=== PATIENT | female | born 1940 | race Caucasian/White ===

== ENCOUNTER 2017-09-17 15:33 | Observation (INO) ==
[2017-09-17] MEDS ORDERED: ONDANSETRON 4 MG/2 ML INJECTION IVP ONE (15:50)
--- NOTE | 2017-09-17 15:52 | Emergency Department Report ---
Abdominal Pain HPI - General Chief Complaint: Nausea/Vomiting/Diarrhea <Tameka Winn Yumiko 09/17/17 15:52 > Stated Complaint: Dizzy,lightheaded <Tameka Winn Yumiko 09/17/17 15:52> Time Seen by Provider: 09/17/17 15:38 <Delia Winnkale Calderon 09/17/17 15:52> Source: patient <Tameka Winn Yumiko 09/17/17 15:52> Mode of arrival: EMS <TatumTamekakale Calderon 09/17/17 15:52> Limitations: no limitations <Delia Winnan Marciano Yumiko 09/17/17 15:52> - History of Present Illness HPI narrative: Pt presents with a complaint of abdominal cramping and nausea. She states she had 2 normal BMs followed by a bout of diarrhea when she stood up after having diarrhea she became dizzy and diaphoretic and then called her daughter and was transported by EMS. Pt complains of nausea at this time. She reports a history of hiatal hernia which causes occasionally causes discomfort after she eats but she has not eaten since breakfast <Tameka Winn 09/17/17 16:13> MD complaint: abdominal pain <Tameka Winn 09/17/17 16:13> Onset (ago): hour(s) <Tameka Winn 09/17/17 16:13> Consistency: constant <Tameka Winn 09/17/17 16:13> Location: epigastric <Tameka Winn 09/17/17 16:13> Severity: mild <Tameka Winn 09/17/17 16:13> Migration to: no migration <Tameka Winn 09/17/17 16:13> Relieving factors: nothing <Tameka Winn 09/17/17 16:13> Exacerbating factors: nothing <Tameka Winn 09/17/17 16:13> Associated symptoms: nausea, diarrhea, other (diahoresis) <Tameka Winn 09/17/17 16:13> - Related Data Home Medications Medication Instructions Recorded Confirmed Lisinopril 10 mg PO BID #0 07/01/12 09/17/17 Aspirin [Towner Aspirin] 81 mg PO DAILY 09/17/17 09/17/17 Docusate Sodium [Colace] 100 mg PO DAILY 09/17/17 09/17/17 Meloxicam [Mobic] 7.5 mg PO BID 09/17/17 09/17/17 Metoprolol Tartrate [Lopressor] 50 mg PO BIDWM 09/17/17 09/17/17 Wheat Dextrin [Benefiber] 1 each PO PRN 09/17/17 09/17/17 diphenhydrAMINE HCl [Benadryl] 25 mg PO PRN 09/17/17 09/17/17 Previous Rx's Medication Instructions Recorded Acetaminophen [Tylenol Extra 500 - 1,000 mg PO Q6H PRN #60 tab 09/27/16 Strength] Omeprazole 20 mg PO ACB #30 cap 10/07/16 <Tameka Winn 09/17/17 15:52> Allergies Allergy/AdvReac Type Severity Reaction Status Date / Time No Known Allergies Allergy Unverified 09/24/16 01:11 <Tameka Winn 09/17/17 15:52> Review of Systems All systems: reviewed and negative except as stated <Tameka Winn 16:13> Constitutional: Denies: fever, chills <Tameka Winn 09/17/17 16:13> Cardiovascular: Denies: chest pain <Tameka Winn 09/17/17 16:13> Respiratory: Denies: cough, dyspnea <Tameka Winn 09/17/17 16:13> Gastrointestinal: Reports: as per HPI, abdominal pain, nausea, diarrhea < Tameka Winn 09/17/17 16:13> Neurological: Reports: as per HPI, weakness <Tameka Winn 09/17/17 16: 13> Physical Exam - Limitations Limitations: no limitations <Tameka Winn 09/17/17 16:13> - General General appearance: alert, in no apparent distress <Tameka Winn 09/17 16:13> - Normal Exams: Head:: Normocephalic without trauma <Tameka Winn 09/17/17 16:13> Eyes:: Pupils are PERRLA w/ EOMI <Tameka Winn 09/17/17 16:13> Neck:: Full range of motion, without adenopathy <Tameka Winn 16:13> Chest/Respirations:: Clear all aguayo, with good airflow, and symmetry bilaterally <Tameka Winn 09/17/17 16:13> Cardiovascular:: Regular rate and rhythm, without murmur or gallop, Pulses 2+ all extremities, capillary refill, <2 seconds all extremities <Tameka Winn 09/17/17 16:13> Abdomen:: Bowel sounds positive, soft, non-tender, non-distended <Tameka Winn 09/17/17 16:13> Musculoskeletal:: No tenderness, or deformity noted, good range of motion, all extremities <Tameka Winn 09/17/17 16:13> Integumentary:: No rashes <Tameka Winn 09/17/17 16:13> Neurological:: Patient is alert, and oriented, cranial nerves, motor/sensory/ cerebellar, exams w/o gross deficits, to observation <Tameka Winn 16:13> Psychiatric:: Patient exhibits, appropriate attention, emotion and affect < Tameka Winn 09/17/17 16:13> Course Vital Signs Temperature 97.5 F 09/17/17 15:33 Pulse Rate 79 09/17/17 15:33 Respiratory Rate 22 09/17/17 15:33 Blood Pressure 119/64 09/17/17 15:33 Pulse Oximetry 95 09/17/17 15:33 Temperature 97.5 F 09/17/17 15:33 Pulse Rate 76 09/17/17 16:18 Respiratory Rate 18 09/17/17 16:18 Blood Pressure 126/61 09/17/17 16:18 Pulse Oximetry 93 09/17/17 16:18 <February,Alex M - 09/17/17 16:44> Abdominal Pain - MDM Narrative Medical decision making narrative: Labs and EKG reviewed. In discussion with pt about results daughter is at bedside who reports pt was unable to get up from the toilet so pt had called her for help. Daughter assisted pt up who she states then had "seizure" like activity and then became unresponsive for unknown amount of time. Pt did not provide any of this info when obtaining her H&P. This leads to question pts ability to care for self at home with undiagnosed infection per CBC. Hospitalist notified for admission <TatumTamekakale Calderon 09/17/17 18:12> - Differential Diagnosis Differential diagnosis: Likely: abdominal pain, diverticulitis, gastroenteritis , small bowel obstruction <Tameka Winn 09/17/17 16:13> - Lab Data Attestation: I reviewed the patient's lab results. <TatumTamekakale Calderon 09/17 18:01> Result diagrams: 09/17/17 16:12 09/17/17 16:12 <Tameka Winn 09/17/17 15:52> Lab Results 09/17/17 09/17/17 Range/Units 16:12 16:12 WBC 15.8 H (4.5-11.0) T/MM3 RBC 4.26 (4.00-5.20) M/MM3 Hgb 14.4 (12-16) GM/DL Hct 43.0 (36-46) % MCV 100.9 H (80-100) UM3 MCH 33.8 (26-34) UUG MCHC 33.5 (31-37) GM/DL RDW Std Deviation 52.4 H (36.9-50.2) FL Plt Count 298 (130-400) T/MM3 MPV 9.7 (9.4-12.4) UM3 Immature Gran % (Auto) Not performed Neut % (Auto) Not performed Lymph % (Auto) Not performed Levy % (Auto) Not performed Eos % (Auto) Not performed Baso % (Auto) Not performed Neut # (Auto) Not performed Lymph # (Auto) Not performed Levy # (Auto) Not performed Eos # (Auto) Not performed Baso # (Auto) Not performed Abs Immat Gran (auto) Not performed Turbidity < 20 (0-20) Sodium 141 (134-144) MEQ/L Potassium 4.6 (3.6-5) MEQ/L Chloride 108 H (98-107) MEQ/L Carbon Dioxide 22 (22-30) MEQ/L Anion Gap 11 (5-15) MEQ/L BUN 34.0 H (7-17) MG/DL Creatinine 1.0 (0.7-1.2) MG/DL GFR Calculation 53 BUN/Creatinine Ratio 34 H (6-26) RATIO Glucose 141 H (65-110) MG/DL Calculated Osmolality 281 H (261-280) MOSM/KG Calcium 9.5 (8.4-10.2) MG/DL Total Bilirubin 0.50 (0.20-1.30) MG/DL Icterus Index < 2 (0-7) AST 19 (14-36) U/L ALT 32 (9-52) U/L Alkaline Phosphatase 88 (38-126) U/L Troponin I < 0.012 (0-0.12) ng/ml Total Protein 6.9 (6.3-8.2) G/DL Albumin 3.9 (3.5-5.0) G/DL Globulin 3.0 (2.4-3.6) G/DL Albumin/Globulin Ratio 1.3 (1.1-2.2) RATIO Specimen Hemolysis < 15 (0-25) <eb 09/17/17 16:44> - EKG Data EKG #1 EKG attestation: Yes: I reviewed and interpreted this EKG. < 16:44> EKG shows normal: sinus rhythm, axis, intervals <eb 09/17/17 16:44> Voltage: c/w LVH <eb 09/17/17 16:44> Interpretation: nonspecific ST-T wave changes <February,[facility] 09/17/17 16:44> Disposition Clinical Impression: Dehydration Diarrhea Qualifiers: Diarrhea type: presumed infectious Qualified Code(s): A09 - Infectious gastroenteritis and colitis, unspecified Syncope Qualifiers: Syncope type: vasovagal syncope Qualified Code(s): R55 - Syncope and collapse <Tameka Winn 09/17/17 18:12> Disposition: 02 To [facility] [place] <Tameka Winn 09/17/17 18:12> Condition: Stable <Tameka Winn 09/17/17 18:12> Prescriptions: No Action Omeprazole 20 mg PO ACB #30 cap Aspirin [Towner Aspirin] 81 mg PO DAILY Metoprolol Tartrate [Lopressor] 50 mg PO BIDWM Meloxicam [Mobic] 7.5 mg PO BID diphenhydrAMINE HCl [Benadryl] 25 mg PO PRN Lisinopril 10 mg PO BID #0 Acetaminophen [Tylenol Extra Strength] 500 - 1,000 mg PO Q6H PRN #60 tab PRN Reason: Pain Wheat Dextrin [Benefiber] 1 each PO PRN Docusate Sodium [Colace] 100 mg PO DAILY <Tameka Winn 09/17/17 15: 52> Referrals: Usama Lopez MD [Family Provider] - <Tameka Winn 09/17/17 15:52> Time of Disposition: 18:12 <Tameka Winn 09/17/17 18:12> - Seen By: midlevel <Tameka Winn 09/17/17 18:12>
[2017-09-17] MEDS ORDERED: FAMOTIDINE PB 20 MG/50 ML BAG IV SCH (16:00)
--- OUTSIDE RECORDS SUMMARY | 2017-09-17 16:12 | External Medical Summary | Referral Summary ---
:1940 Author Organization [facility] [address] [place] [address] Care Team Providers Name Role Phone Usama Lopez Primary Care Physician Encounter [facility] [id number] Date(s): 07/06/16 - 07/06/16 [facility] [address] [place] [address] Discharge Diagnosis: Generalized osteoarthritis (disorder) Discharge Diagnosis: Hypercholesterolemia Discharge Diagnosis: GERD (gastroesophageal reflux disease) Discharge Diagnosis: Essential hypertension Discharge Disposition: -Home or Self Care Attending Physician: Usama Lopez MD Admitting Physician: Usama Lopez MD Vital Signs Most recent to oldest [Reference Range]: 1 Temperature Tympanic [36.6-38.1 degC] 36.8 degC (07/06/16 11:34 AM) Peripheral Pulse Rate [60-100 bpm] 76 bpm (07/06/16 11:34 AM) Respiratory Rate [14-20 br/min] 18 br/min (07/06/16 11:34 AM) Blood Pressure [90-140/60-90 mmHg] 130/78 mmHg (07/06/16 11:34 AM) Problem List Condition Effective Dates Status Health Status Informant Generalized osteoarthritis Active (disorder)(Confirmed) Essential hypertension Active (disorder)(Confirmed) GERD(Confirmed) Active Hypercholesterolemia(Confirmed) Active Hypertension(Confirmed) Active Obesity(Confirmed) Active patient Osteoporosis(Confirmed) Active Pure hypercholesterolemia Active (disorder)(Confirmed) Pulmonary hypertension, Active secondary(Confirmed) Allergies, Adverse Reactions, Alerts No Known Medication Allergies Medications aspirin 81 mg oral tablet, chewable See Instructions, ON HOLD X 1 MONTH Start Date: 06/13/14 Status: OrderedBenefiber Oral, Daily, 0 Refill(s) Start Date: 12/12/14 Status: Orderedlisinopril 10 mg oral tablet See Instructions, TAKE ONE TABLET BY MOUTH TWICE DAILY, # 180 tabs, 1 Refill(s) , eRx: [id number], TAKE ONE TABLET BY MOUTH TWICE DAILY Start Date: 04/11/16 Status: Orderedmeloxicam 7.5 mg oral tablet See Instructions, TAKE ONE TO TWO TABLETS BY MOUTH ONCE DAILY, # 180 tabs, 2 Refill(s), Pharmacy: [id number], TAKE ONE TO TWO TABLETS BY MOUTH ONCE DAILY Start Date: 07/06/16 Status: OrderedMultivitamins oral tablet 1 tabs, Oral, Daily Start Date: 06/13/14 Status: Orderedomeprazole 20 mg oral delayed release capsule See Instructions, TAKE ONE CAPSULE BY MOUTH ONCE DAILY BEFORE A MEAL, # 90 caps, 3 Refill(s), Pharmacy: [id number], TAKE ONE CAPSULE BY MOUTH ONCE DAILY BEFORE A MEAL Start Date: 07/06/16 Status: OrderedPeri-Colace 1 tabs, Oral, Bedtime (once a day), Constipation, 0 Refill(s) Start Date: 11/11/14 Status: Ordered Results Chemistry Most recent to oldest [Reference Range]: 1 Sodium Lvl [135-144 mEq/L] 139 mEq/L (07/06/16 12:10 PM) Potassium Lvl [3.5-5.2 mEq/L] 4.4 mEq/L (07/06/16 12:10 PM) Chloride [99-111 mEq/L] 107 mEq/L (07/06/16 12:10 PM) CO2 [22-31 mEq/L] 25 mEq/L (07/06/16 12:10 PM) AGAP [3-20] 7 (07/06/16 12:10 PM) BUN [10-20 mg/dL] 32 mg/dL *HI* (07/06/16 12:10 PM) Glucose Lvl [70-99 mg/dL] 95 mg/dL (07/06/16 12:10 PM) Creatinine Lvl [0.57-1.11 mg/dL] 1.16 mg/dL *HI* (07/06/16 12:10 PM) eGFR [>60 mL/min] 45 mL/min 1 *ABN* (07/06/16 12:10 PM) Calcium Lvl [8.9-10.5 mg/dL] 10.1 mg/dL (07/06/16 12:10 PM) Albumin Lvl [3.4-4.8 gm/dL] 4.4 gm/dL (07/06/16 12:10 PM) Total Protein [6.0-7.6 gm/dL] 6.8 gm/dL (07/06/16 12:10 PM) Globulin [1.8-4.0 gm/dL] 2.4 gm/dL (07/06/16 12:10 PM) ALT [0-55 U/L] 11 U/L (07/06/16 12:10 PM) AST [5-34 U/L] 14 U/L (07/06/16 12:10 PM) Alk Phos [40-150 U/L] 81 U/L (07/06/16 12:10 PM) Bili Total [0.2-1.2 mg/dL] 0.6 mg/dL (07/06/16 12:10 PM) 1Result Comment: Multiply eGFR results by 1.21 for race. Immunizations Vaccine Date Refusal Reason tetanus/diphth/pertuss (Tdap) adult/adol 09/10/14 hepatitis B pediatric vaccine 12/28/88 hepatitis B pediatric vaccine 07/30/88 hepatitis B pediatric vaccine 06/30/88 influenza virus vaccine, inactivated 07/06/16 influenza virus vaccine, inactivated1 07/20/15 influenza virus vaccine, live 07/14/14 influenza virus vaccine, live 07/11/13 influenza virus vaccine, live 08/06/12 pneumococcal 13-valent conjugate vaccine 07/02/15 pneumococcal 23-polyvalent vaccine 10/30/03 1Result Comment: [07/20/2015] VIA PT ORAL REPORT Procedures Procedure Date Related Diagnosis Body Site Colonoscopy1 11/05/14 Esophagogastroduodenoscopy2 11/05/14 Mammogram 06/18/14 Cataract extraction 2006 Hernia repair Hysterectomy 1Marked diverticulosis likely the cause of rectal [id number] stomach Social History Social History Type Response Smoking Status Never smoker Assessment and Plan Extracted from: Title: Office Visit Note Author: Usama Lopez MD Date: 07/06/16 Assessment/Plan 1.Essential hypertension, Essential (primary) hypertension Blood pressure appears to be adequately controlled no change in current treatment is recommended. CMP is ordered for today. Flu shot given today. Follow-up in 6 months. Call with problems or concerns. Ordered: Comprehensive Metabolic Panel Office Visit Level 4 Est 29358 2.GERD (gastroesophageal reflux disease), Gastro-esophageal reflux disease without esophagitis Chronic stable on omeprazole refills provided today. Call if worsening symptoms. Ordered: Office Visit Level 4 Est 05891 3.Generalized osteoarthritis (disorder), Polyosteoarthritis, unspecified Chronic persistent no change in current treatmentmeloxicam refilled today. Ordered: Comprehensive Metabolic Panel Office Visit Level 4 Est 05615 4.Hypercholesterolemia, Pure hypercholesterolemia Chronic and stable recheck next springunless problems develop prior to that. Follow-up in 6 months Ordered: Office Visit Level 4 Est 06019 Orders: meloxicam, See Instructions, TAKE ONE TO TWO TABLETS BY MOUTH ONCE DAILY, # 180 tabs, 2 Refill(s), Pharmacy: [facility], TAKE ONE TO TWO TABLETS BY MOUTH ONCE DAILY omeprazole, See Instructions, TAKE ONE CAPSULE BY MOUTH ONCE DAILY BEFORE A MEAL, # 90 caps, 3 Refill(s), Pharmacy: [facility], TAKE ONE CAPSULE BY MOUTH ONCE DAILY BEFORE A MEAL
--- OUTSIDE RECORDS SUMMARY | 2017-09-17 16:12 | External Medical Summary | Referral Summary ---
:1940 Author Organization [facility] [address] [place] [address] Care Team Providers Name Role Phone Usama Lopez Primary Care Physician Encounter VC Date(s): 08/29/16 - 08/29/16 [facility] [address] [place] [address] [place] Discharge Diagnosis: Hypercholesterolemia Discharge Diagnosis: Orthostatic dizziness Discharge Diagnosis: Left eye pain Discharge Diagnosis: Essential hypertension Discharge Diagnosis: Headache Discharge Disposition: 01-Home or Self Care Attending Physician: Usama Lopez MD Admitting Physician: Usama Lopez MD Vital Signs Most recent to oldest [Reference Range]: 1 Temperature Tympanic [36.6-38.1 degC] 36.9 degC (08/29/16 4:24 PM) Peripheral Pulse Rate [60-100 bpm] 88 bpm (08/29/16 4:24 PM) Respiratory Rate [14-20 br/min] 16 br/min (08/29/16 4:24 PM) Blood Pressure [90-140/60-90 mmHg] 164/87 mmHg *HI* (08/29/16 4:24 PM) Problem List Condition Effective Dates Status Health Status Informant Generalized osteoarthritis Active (disorder)(Confirmed) Essential hypertension Active (disorder)(Confirmed) GERD(Confirmed) Active Hypercholesterolemia(Confirmed) Active Hypertension(Confirmed) Active Obesity(Confirmed) Active patient Osteoporosis(Confirmed) Active Pure hypercholesterolemia Active (disorder)(Confirmed) Pulmonary hypertension, Active secondary(Confirmed) Allergies, Adverse Reactions, Alerts No Known Medication Allergies Medications aspirin 81 mg oral tablet, chewable See Instructions, ON HOLD X 1 MONTH Start Date: 06/13/14 Status: OrderedBenadryl Allergy mg, Oral, TID, 0 Refill(s) Start Date: 07/14/16 Status: OrderedBenefiber Oral, Daily, 0 Refill(s) Start Date: 12/12/14 Status: Orderedlisinopril 10 mg oral tablet See Instructions, TAKE ONE TABLET BY MOUTH TWICE DAILY, # 180 tabs, 1 Refill(s) , eRx: [id number], TAKE ONE TABLET BY MOUTH TWICE DAILY Start Date: 04/11/16 Status: Orderedmeloxicam 7.5 mg oral tablet See Instructions, TAKE ONE TO TWO TABLETS BY MOUTH ONCE DAILY, # 180 tabs, 2 Refill(s), Pharmacy: [facility], TAKE ONE TO TWO TABLETS BY MOUTH ONCE DAILY Start Date: 07/06/16 Status: OrderedMultivitamins oral tablet 1 tabs, Oral, Daily Start Date: 06/13/14 Status: Orderedomeprazole 20 mg oral delayed release capsule See Instructions, TAKE ONE CAPSULE BY MOUTH ONCE DAILY BEFORE A MEAL, # 90 caps, 3 Refill(s), Pharmacy: [facility], TAKE ONE CAPSULE BY MOUTH ONCE DAILY BEFORE A MEAL Start Date: 07/06/16 Status: OrderedPeri-Colace 1 tabs, Oral, Bedtime (once a day), Constipation, 0 Refill(s) Start Date: 11/11/14 Status: Ordered Results No data available for this section Immunizations Vaccine Date Refusal Reason tetanus/diphth/pertuss (Tdap) [...] 1Marked diverticulosis likely the cause of rectal [id number] stomach Social History Social History Type Response Smoking Status Never smoker Assessment and Plan Extracted from: Title: Office Visit Note Author: Usama Lopez MD Date: 08/29/16 Assessment/Plan 1.Essential hypertension She does dropped into 15 point systolicwith sitting to standing. I think she needs to have her blood pressuretreated. I've asked her to increase her fluid intake and to wear support stockings. She walks with a cane and I encouraged her to be careful when she goes from sitting to standing. If the symptoms seemed to progress or worsen she'll let us know. 2.Hypercholesterolemia Chronic stable no change intreatment. 3.Orthostatic dizziness See above recommendations under essential hypertension 4.Left eye pain She has been seen by an loss prevention specialist for this no obvious causes been foundbecause of her ongoing pain and headacheI've recommended MRI of the brain. 5.Headache Because of ongoing headache and eye pain I've recommended MRI of the brain.
--- OUTSIDE RECORDS SUMMARY | 2017-09-17 16:12 | External Medical Summary | Referral Summary ---
:1940 Author Organization [facility] [place] [address] Care Team Providers Name Role Phone Usama Lopez Primary Care Physician Encounter [facility] Date(s): 07/20/15 - 07/20/15 [facility] [place] [phone] [place] Discharge Diagnosis: Seborrheic keratosis Discharge Disposition: 01-Home or Self Care Attending Physician: Usama Lopez MD Admitting Physician: Usama Lopez MD Vital Signs Most recent to oldest [Reference Range]: 1 Temperature Tympanic [36.6-38.1 degC] 37.0 degC (07/20/15 2:21 PM) Peripheral Pulse Rate [60-100 bpm] 92 bpm (07/20/15 2:21 PM) Respiratory Rate [14-20 br/min] 16 br/min (07/20/15 2:21 PM) Blood Pressure [90-140/60-90 mmHg] 146/9 mmHg *HI* (07/20/15 2:21 PM) Problem List Condition Effective Dates Status [...] # 180 tabs, 1 Refill(s) , eRx: [id number], TAKE ONE TABLET BY MOUTH TWICE DAILY Start Date: 10/12/15 Status: Orderedmeloxicam 7.5 mg oral tablet See Instructions, TAKE ONE TO TWO TABLETS BY MOUTH ONCE DAILY, # 180 tabs, 1 Refill(s), eRx: [id number], TAKE ONE TO TWO TABLETS BY MOUTH ONCE DAILY Start Date: 01/11/16 Status: OrderedMultivitamins oral tablet 1 tabs, Oral, Daily Start Date: 06/13/14 Status: Orderedomeprazole 20 mg oral delayed release capsule See Instructions, TAKE ONE CAPSULE BY MOUTH ONCE DAILY BEFORE A MEAL, # 90 caps, 1 Refill(s), [facility]Rx:[facility], TAKE ONE CAPSULE BY MOUTH ONCE DAILY BEFORE A MEAL Start Date: 10/12/15 Status: OrderedPeri-Colace 1 tabs, Oral, Bedtime (once a day), Constipation, 0 Refill(s) Start Date: 11/11/14 Status: Ordered Results No data available for this section Immunizations Vaccine Date Refusal Reason tetanus/diphth/pertuss (Tdap) adult/adol 09/10/14 hepatitis B pediatric vaccine 12/28/88 hepatitis B pediatric vaccine 07/30/88 hepatitis B pediatric vaccine 06/30/88 influenza virus vaccine, inactivated1 07/20/15 influenza virus vaccine, live 07/14/14 influenza virus vaccine, live 07/11/13 influenza virus vaccine, live 08/06/12 pneumococcal 13-valent conjugate vaccine 07/02/15 pneumococcal 23-polyvalent vaccine 10/30/03 1Result Comment: [07/20/2015] VIA PT ORAL REPORT Procedures Procedure Date Related Diagnosis Body Site Colonoscopy1 11/05/14 Esophagogastroduodenoscopy2 11/05/14 Mammogram 06/18/14 Cataract extraction 2006 Hernia repair Hysterectomy 1Marked diverticulosis likely the cause of rectal [id number] stomach Social History Social History Type Response Smoking Status Never smoker Assessment and Plan Extracted from: Title: Office Visit Note Author: Usama Lopez MD Date: 07/20/15 Assessment/Plan Seborrheic keratosis I recommended cryotherapy for this lesion. After obtaining verbal consent. With liquid nitrogen the lesion was frozen for 50 seconds. She tolerated this well no further jian tment at this time. We discussed that if it recurs we may need to consider surgical excision. Ordered: Destruction benign lesion, any methd, 1st
--- OUTSIDE RECORDS SUMMARY | 2017-09-17 16:12 | External Medical Summary | Continuity of Care Document ---
:1940 Author Organization [facility] Allergies Medications Problems Procedures Results Encounters ACCT No. Visit Discharge Status Pt. Type Provider Facility Loc./Unit Complaint Date/Time [id number] 12/16/2013 12/16/2013 [facility] Outpatient 08:19:00 23:59:59 [id number] 08/21/2013 08/21/2013 CLS Outpatient 09:49:00 23:59:59
--- OUTSIDE RECORDS SUMMARY | 2017-09-17 16:12 | External Medical Summary | Referral Summary ---
:1940 Author Organization [facility] [place] [address] Care Team Providers Name Role Phone Usama Lopez Primary Care Physician Encounter VC Date(s): 07/02/15 - 07/02/15 [facility] [place] [address] Discharge Diagnosis: GERD (gastroesophageal reflux disease) Discharge Diagnosis: Degenerative joint disease involving multiple joints Discharge Diagnosis: Hypercholesterolemia Discharge Diagnosis: Essential hypertension Discharge Diagnosis: Osteoporosis Discharge Disposition: 01-Home or Self Care Attending Physician: Usama Lopez MD Admitting Physician: Usama Lopez MD Vital Signs Most recent to oldest [Reference Range]: 1 Temperature Tympanic [36.6-38.1 degC] 36.9 degC (07/02/15 10:23 AM) Peripheral Pulse Rate [60-100 bpm] 76 bpm (07/02/15 10:23 AM) Respiratory Rate [14-20 br/min] 18 br/min (07/02/15 10:23 AM) Blood Pressure [90-140/60-90 mmHg] 148/82 mmHg *HI* (07/02/15 10:23 AM) Problem List Condition Effective Dates Status [...] # 180 tabs, 1 Refill(s) , eRx: [id number], TAKE ONE TABLET BY MOUTH TWICE DAILY Start Date: 10/12/15 Status: Orderedmeloxicam 7.5 mg oral tablet See Instructions, TAKE ONE TO TWO TABLETS BY MOUTH ONCE DAILY, # 180 tabs, 1 Refill(s), eRx: [id number], TAKE ONE TO TWO TABLETS BY MOUTH ONCE DAILY Start Date: 01/11/16 Status: OrderedMultivitamins oral tablet 1 tabs, Oral, Daily Start Date: 06/13/14 Status: Orderedomeprazole 20 mg oral delayed release capsule See Instructions, TAKE ONE CAPSULE BY MOUTH ONCE DAILY BEFORE A MEAL, # 90 caps, 1 Refill(s), eRx:[facility], TAKE ONE CAPSULE BY [...] 1Marked diverticulosis likely the cause of rectal [id number] stomach Social History Social History Type Response Smoking Status Never smoker Assessment and Plan Extracted from: Title: Office Visit Note Author: Usama Lopez MD Date: 07/02/15 Assessment/Plan Degenerative joint disease involving multiple joints Overall stable no change in current recommended. Ordered: Office Visit Level 4 Est 76759 Essential hypertension Blood pressure is adequately controlled. Blood pressure readings at home within the normal range. Medications and treatments reviewed no changes are recommended. Report card reviewed and provided. Follow-up in 6 months is encouraged. Prevnar given today. Ordered: pneumococcal 13-valent conjugate vaccine, 0.5 mL, IntraMuscular, Once, First Dose: 07/02/15 11:00:00 CDT, Stop Date: 07/02/15 11:00:00 CDT, Form: Injection Office Visit Level 4 Est 58410 GERD (gastroesophageal reflux disease) Chronic stable no change in current treatment recommended. Ordered: Office Visit Level 4 Est 23402 Hypercholesterolemia Chronic stable no change in current treatment recommended. Follow-up in 6 months with laboratory studies then. Ordered: Office Visit Level 4 Est 00830 Osteoporosis Chronic stable no change in current treatment is recommended. Ordered: Office Visit Level 4 Est 41292 Addendum by Usama Lopez MD on She did have a abnormal mole on her left July 02, 2015 11:00:34 CDT forearm that we discussed removing. We'll schedule a time for that..
--- OUTSIDE RECORDS SUMMARY | 2017-09-17 16:12 | External Medical Summary | Referral Summary ---
:1940 Author Organization [facility] [place] [address] Care Team Providers Name Role Phone Usama Lopez Primary Care Physician Encounter VC Date(s): 10/10/16 - 10/10/16 [facility] [place] [phone] [place] Discharge Diagnosis: Tachyarrhythmia Discharge Diagnosis: GERD (gastroesophageal reflux disease) Discharge Diagnosis: History of femur fracture Discharge Diagnosis: Essential hypertension Discharge Disposition: -Home or Self Care Attending Physician: Alana Roblero APRN Admitting Physician: Alana Roblero APRN Vital Signs Most recent to oldest [Reference Range]: 1 Temperature Tympanic [36.6-38.1 degC] 36.8 degC (10/10/16 9:23 AM) Peripheral Pulse Rate [60-100 bpm] 80 bpm (10/10/16 9:23 AM) Blood Pressure [90-140/60-90 mmHg] 144/84 mmHg *HI* (10/10/16 9:23 AM) Problem List Condition Effective Dates Status Health Status Informant Generalized osteoarthritis Active (disorder)(Confirmed) Essential hypertension Active (disorder)(Confirmed) GERD(Confirmed) Active Obesity(Confirmed) Active patient Osteoporosis(Confirmed) Active Pure hypercholesterolemia Active (disorder)(Confirmed) Pulmonary hypertension, Active secondary(Confirmed) Allergies, Adverse Reactions, Alerts No Known Medication Allergies Medications acetaminophen 500 mg oral tablet 500 mg 1 tabs, Oral, q6hr, as needed for pain, 0 Refill(s) Start Date: 10/10/16 Status: Orderedaspirin 81 mg oral tablet, chewable See Instructions, ON HOLD X 1 MONTH Start Date: 06/13/14 Status: OrderedBenefiber Oral, Daily, 0 Refill(s) Start Date: 12/12/14 Status: Orderedferrous sulfate 324 mg, Oral, Daily, 0 Refill(s) Start Date: 10/10/16 Status: OrderedHYDROcodone-acetaminophen 5 mg-325 mg oral tablet 1-2 tabs, Oral, q6hr, as needed for pain, 0 Refill(s) Start Date: 10/10/16 Status: Orderedmeloxicam 7.5 mg oral tablet See Instructions, TAKE ONE TO TWO TABLETS BY MOUTH ONCE DAILY, # 180 tabs, 2 Refill(s), Pharmacy: [id number], TAKE ONE TO TWO TABLETS BY MOUTH ONCE DAILY Start Date: 07/06/16 Status: Orderedmetoprolol tartrate 50 mg oral tablet 50 mg 1 tabs, Oral, BID, 0 Refill(s) Start Date: 10/10/16 Status: OrderedMultivitamins oral tablet 1 tabs, Oral, Daily Start Date: 06/13/14 Status: Orderedomeprazole 20 mg oral delayed release capsule See Instructions, TAKE ONE CAPSULE BY MOUTH ONCE DAILY BEFORE A MEAL, # 90 caps, 3 Refill(s), Pharmacy: [facility], TAKE ONE CAPSULE BY MOUTH ONCE DAILY BEFORE A MEAL Start Date: 07/06/16 Status: OrderedPeri-Colace 1 tabs, Oral, Bedtime (once a day), Constipation, 0 Refill(s) Start Date: 11/11/14 Status: Orderedpolyethylene glycol 3350 oral powder for reconstitution 17 g, Oral, Daily, prn constipation, 0 Refill(s) Start Date: 10/10/16 Status: OrderedVitamin C 500 mg oral tablet 500 mg 1 tabs, Oral, Daily, 0 Refill(s) Start Date: 10/10/16 Status: Ordered Results No data available for this section Immunizations Given and Recorded Vaccine Date Status Refusal Reason tetanus/diphth/pertuss (Tdap) adult/adol 09/10/14 Given hepatitis B pediatric vaccine 12/28/88 Given hepatitis B pediatric vaccine 07/30/88 Given hepatitis B pediatric vaccine 06/30/88 Given influenza virus vaccine, inactivated 07/06/16 Given influenza virus vaccine, inactivated1 07/20/15 Recorded influenza virus vaccine, live 07/14/14 Recorded influenza virus vaccine, live 07/11/13 Given influenza virus vaccine, live 08/06/12 Given pneumococcal 13-valent conjugate vaccine 07/02/15 Recorded pneumococcal 23-polyvalent vaccine2 10/01/16 Recorded pneumococcal 23-polyvalent vaccine 10/30/03 Recorded 1Result Comment: [07/20/2015] VIA PT ORAL [id number] Comment: [10/10/2016] hospital record Procedures Procedure Date Related Diagnosis Body Site Open reduction of fracture of femur with 09/27/16 internal fixation1 Colonoscopy2 11/05/14 Esophagogastroduodenoscopy3 11/05/14 Mammogram 06/18/14 Cataract extraction 2005 Hernia repair Hysterectomy 1s/p R femur [id number] diverticulosis likely the cause of rectal [id number] stomach Social History Social History Type Response Smoking Status Never smoker Assessment and Plan Extracted from: Title: Office Visit Note-femur fx f/u Author: Alana Roblero APRN Date: 10/10/16 Assessment/Plan 1.History of femur fracture Recovering well without complications. Follow-up with orthopedics as recommended. Briefly discussed safety. 2.Tachyarrhythmia Continue metoprolol. Encouraged her to make follow-up appointment with Dr. Gayle. Offered to do this for her butshe declined. We discussed aspirin. I think for now she is on the Lovenox has history of GI bleedit's reasonable to keep the aspirin on hold until she has completed the Lovenox. She voices understanding. 3.Essential hypertension Well controlled. Continue to monitor at home. Goal is less than 150/ 90. 4.GERD (gastroesophageal reflux disease) Well controlled with Prilosec. Continue same. Hospital records were reviewed.
--- OUTSIDE RECORDS SUMMARY | 2017-09-17 16:12 | External Medical Summary | Referral Summary ---
:1940 Author [facility] Address [address] [place] [address] [place] [address] Care Team Providers Name Role Phone Usama Lopez Primary Care Physician Encounter VC Date(s): 12/31/15 - 12/31/15 [facility] [place] [address]- Discharge Diagnosis: GERD (gastroesophageal reflux disease) Discharge Diagnosis: Generalized osteoarthritis (disorder) Discharge Disposition: 01-Home or Self Care Attending Physician: Usama Lopez MD Vital Signs Most recent to oldest [Reference Range]: 1 Temperature Tympanic [36.6-38.1 degC] 36.5 degC *LOW* (12/31/15 9:57 AM) Peripheral Pulse Rate [60-100 bpm] 104 bpm *HI* (12/31/15 9:57 AM) Respiratory Rate [14-20 br/min] 22 br/min *HI* (12/31/15 9:57 AM) Blood Pressure [90-140/60-90 mmHg] 130/86 mmHg (12/31/15 9:57 AM) Problem List Condition Effective Dates Status [...] # 180 tabs, 1 Refill(s) , eRx: [facility], TAKE ONE TABLET BY MOUTH TWICE DAILY Start Date: 10/12/15 Status: Orderedmeloxicam 7.5 mg oral tablet 7.5 mg 1 tabs, Oral, BID, # 180 tabs, eRx: [facility], TAKE ONE TO TWO TABLETS BY MOUTH ONCE DAILY Start Date: 08/03/15 Status: OrderedMultivitamins oral tablet 1 tabs, Oral, Daily Start Date: 06/13/14 Status: Orderedomeprazole 20 mg oral delayed release capsule See Instructions, TAKE ONE CAPSULE BY MOUTH ONCE DAILY BEFORE A MEAL, # 90 caps, 1 Refill(s), eRx:[facility], TAKE ONE CAPSULE BY MOUTH ONCE DAILY BEFORE A MEAL Start Date: 10/12/15 Status: OrderedPeri-Colace 1 tabs, Oral, Bedtime (once a day), Constipation, 0 Refill(s) Start Date: 11/11/14 Status: Ordered Results Hematology Most recent to oldest [Reference Range]: 1 WBC [4.8-10.8 10*3/uL] 8.4 10*3/uL (12/31/15 9:38 AM) RBC [4.00-5.20] 4.60 (12/31/15 9:38 AM) Hgb [12.0-16.0 gm/dL] 15.2 gm/dL (12/31/15 9:38 AM) Hct [37.0-47.0 %] 45.5 % (12/31/15 9:38 AM) MCV [82.0-99.0 fL] 98.9 fL (12/31/15 9:38 AM) MCH [27.0-32.0 pg] 33.0 pg *HI* (12/31/15 9:38 AM) MCHC [32.0-36.0 gm/dL] 33.4 gm/dL (12/31/15 9:38 AM) RDW [11.5-14.5 %] 13.7 % (12/31/15 9:38 AM) Platelet [150-400 10*3/uL] 314 10*3/uL (12/31/15 9:38 AM) MPV [8.8-14.8 fL] 10.6 fL (12/31/15 9:38 AM) Chemistry Most recent to oldest [Reference Range]: 1 Sodium Lvl [135-144 mEq/L] 139 mEq/L (12/31/15 9:38 AM) Potassium Lvl [3.5-5.2 mEq/L] 4.2 mEq/L (12/31/15 9:38 AM) Chloride [99-111 mEq/L] 106 mEq/L (12/31/15 9:38 AM) CO2 [22-31 mEq/L] 24 mEq/L (12/31/15 9:38 AM) AGAP [3-20] 9 (12/31/15 9:38 AM) BUN [10-20 mg/dL] 27 mg/dL *HI* (12/31/15 9:38 AM) Glucose Lvl [70-99 mg/dL] 101 mg/dL *HI* (12/31/15 9:38 AM) Creatinine Lvl [0.57-1.11 mg/dL] 0.98 mg/dL (12/31/15 9:38 AM) eGFR [>60 mL/min] 55 mL/min 1 *ABN* (12/31/15 9:38 AM) Calcium Lvl [8.9-10.5 mg/dL] 10.1 mg/dL (12/31/15 9:38 AM) Albumin Lvl [3.4-4.8 gm/dL] 4.4 gm/dL (12/31/15 9:38 AM) Total Protein [6.2-8.1 gm/dL] 7.1 gm/dL (12/31/15 9:38 AM) Globulin [1.8-4.0 gm/dL] 2.7 gm/dL (12/31/15 9:38 AM) ALT [0-55 U/L] 11 U/L (12/31/15 9:38 AM) AST [5-34 U/L] 15 U/L (12/31/15 9:38 AM) Alk Phos [40-150 U/L] 95 U/L (12/31/15 9:38 AM) Bili Total [0.2-1.2 mg/dL] 0.8 mg/dL (12/31/15 9:38 AM) Chol [0-199 mg/dL] 224 mg/dL *HI* (12/31/15 9:38 AM) Trig [0-149 mg/dL] 144 mg/dL (12/31/15 9:38 AM) HDL [40-84 mg/dL] 62 mg/dL (12/31/15 9:38 AM) LDL [0-130 mg/dL] 133 mg/dL *HI* (12/31/15 9:38 AM) VLDL Cholesterol [0-28 mg/dL] 29 mg/dL *HI* (12/31/15 9:38 AM) Cardiac Risk [0.0-5.0] 3.6 (12/31/15 9:38 AM) 1Result Comment: Multiply eGFR results by 1.21 [...] 1Marked diverticulosis likely the cause of rectal wuymzsgj5Fbdctolhlnzsh stomach Social History Social History Type Response Smoking Status Never smoker Assessment and Plan Extracted from: Title: Office Visit Note Author: Usama Lopez MD Date: 12/31/15 Assessment/Plan Dyslipidemia Overallstableon current treatment. Laboratory studies were drawn this morning and are pending. Kidney current treatment without change. Will let her know if we need to make a Ordered: Office Visit Level 4 Est 60868 Generalized osteoarthritis (disorder) Chronic stable no change in current treatment. Ordered: Office Visit Level 4 Est 80909 GERD (gastroesophageal reflux disease) She continues on a regular dose of omeprazole no change in current treatment. Ordered: Office Visit Level 4 Est 09056 Hypertension The pressures adequately controlled. Medications and treatments reviewed no changes are recommended. Laboratory studies were drawn this morning. Follow-up in 6 months. Report card reviewed and provided. Ordered: Office Visit Level 4 Est 68248 Orders: meloxicam, 7.5 mg 1 tabs, Oral, BID, # 180 tabs, eRx: [facility], TAKE ONE TO TWO TABLETS BY MOUTH ONCE DAILY
--- OUTSIDE RECORDS SUMMARY | 2017-09-17 16:12 | External Medical Summary | Referral Summary ---
:1940 Author Organization [facility] [place] [address] Care Team Providers Name Role Phone Usama Lopez Primary Care Physician Encounter VC Date(s): 07/14/16 - 07/14/16 [facility] [address] [place] [address] [place] Discharge Diagnosis: Diplopia Discharge Diagnosis: Transient ischemic attack Discharge Disposition: 01-Home or Self Care Attending Physician: Usama Lopez MD Admitting Physician: Usama Lopez MD Vital Signs Most recent to oldest [Reference Range]: 1 Temperature Tympanic [36.6-38.1 degC] 36.9 degC (07/14/16 10:01 AM) Peripheral Pulse Rate [60-100 bpm] 88 bpm (07/14/16 10:01 AM) Blood Pressure [90-140/60-90 mmHg] 148/84 mmHg *HI* (07/14/16 10:01 AM) Problem List Condition Effective Dates Status [...] # 180 tabs, 1 Refill(s) , eRx: [facility], TAKE ONE TABLET BY MOUTH TWICE DAILY Start Date: 04/11/16 Status: Orderedmeloxicam 7.5 mg oral tablet See Instructions, TAKE ONE TO TWO TABLETS BY MOUTH ONCE DAILY, # 180 tabs, 2 Refill(s), Pharmacy: [facility], TAKE ONE TO TWO TABLETS BY MOUTH ONCE DAILY Start Date: 07/06/16 Status: OrderedMultivitamins oral tablet 1 tabs, Oral, Daily Start Date: 06/13/14 Status: Orderedomeprazole 20 mg oral delayed release capsule See Instructions, TAKE ONE CAPSULE BY MOUTH ONCE DAILY BEFORE A MEAL, # 90 caps, 3 Refill(s), Pharmacy: [facility], TAKE ONE CAPSULE BY [...] 1Marked diverticulosis likely the cause of rectal ylnbhdyc5Zuqxvocvzexyb stomach Social History Social History Type Response Smoking Status Never smoker Assessment and Plan Extracted from: Title: Office Visit Note Author: Usama Lopez MD Date: 07/14/16 Assessment/Plan 1.Diplopia She has seen her eye doctor who recommended some further evaluation was concerned about TIA. If she has recurring episodes of diplopia she should let us know. 2.Transient ischemic attack The diplopia may have been a TIA. I've recommended a carotid Doppler. We discussed other options as far as anticoagulation. I don't think Plavix would provide sig nificant reduced riskfor stroke for her. Certainly further anticoagulation is not indicated. Idiscussed increasing herdose of aspirin from 81-325 mg she's hesitant to do that with her previous history of rectal bleeding. For the time being will continue 81 mg of aspirin and see what thecarotid Doppler shows.
[2017-09-17] MEDS ORDERED: NS 1,000 ML IV SCH ×2 (17:00)
--- NOTE | 2017-09-17 19:47 | History & Physical Report ---
History of Present Illness Date: 09/17/17 Chief complaint: nausea, diarrhea, lightheaded HPI: Vivi is a 77y/o female w/ h/o HTN, GERD(hiatal/diaphragmatic hernia) who presents to ED at [facility] this afternoon following episode of abdominal cramping, diarrhea, lightheadedness and brief syncopal episode today and was brought in by EMS. Patient reports abdominal cramping today followed by a "normal" stool around noon and then an hour later started having multiple diarrheal stools ( liquid w/ "flakes" of stool). After last bout of diarrhea, she felt diaphoretic and lightheaded when she tried to get up from the toilet. She callled her daughter and she came over and they notified EMS as the daughter states the patient had brief LOC along w/ twitching of the left side of the face and shaking of the left arm. Patient states she "came to" about the time EMS arrived. Patient states that EMS took her BP and it was "low" but not sure of exact BP at that time. Patient states that prior to the episode she was "feeling fine" and denies f/c/s , recent acute illness, LEIJA, focal neuro deficits and further denies chest pain and shortness of breath. Patient denies h/o seizures and denies h/o head trauma. Patient states she had similar episode of "fainting" when she was doing the prep for a colonoscopy a few years ago. EMS arrived and brought the patient to the ED. In the ED, patient had EKG showing NSR and non-specific ST-T wave changes and noted to have a WBC of 15.8, a BUN of 34 and a Cr of 1 and ER provider felt that patient was dehydrated so started NS at 200 cc/hour. Troponin < 0.012 and UA negative. Patient admitted to the Hospitalist service for further evaluation and management. At present when I am visiting w/ her she states that she feels "much better" and denies abdominal pain and denies nausea and states she is hungry and would like something to eat. Review of Systems All systems PM: 10-point ROS was reviewed, no additional remarkable complaints except COUNTS INCLUDE 234 BEDS AT THE [facility] Medical History Diarrhea (Acute Medical) Dehydration (Acute Medical) Syncope (Acute Medical) Past Medical History Right hip fracture and repair in 2016 H/o MVP and occasional palpitations but has had 2 stress tests that have been "unremarkable" per her report HTN - usually her BP runs 140 / 70s-80s GERD w/ hiatal hernia HLD - diet controlled - Social History Smoking status: Never smoker Substance use type: does not use Alcohol intake frequency: does not drink Housing: house Household members: none Current occupational status: retired (Nurse) Medications Home Medications Medication Instructions Recorded Confirmed Type Lisinopril 10 mg PO BID #0 07/01/12 09/17/17 History Aspirin [Ivalee Aspirin] 81 mg PO DAILY 09/17/17 09/17/17 History Docusate Sodium [Colace] 100 mg PO DAILY 09/17/17 09/17/17 History Meloxicam [Mobic] 7.5 mg PO BID 09/17/17 09/17/17 History Metoprolol Tartrate [Lopressor] 50 mg PO BIDWM 09/17/17 09/17/17 History Wheat Dextrin [Benefiber] 1 each PO PRN 09/17/17 09/17/17 History diphenhydrAMINE HCl [Benadryl] 25 mg PO PRN 09/17/17 09/17/17 History Allergies Allergy/AdvReac Type Severity Reaction Status Date / Time No Known Allergies Allergy Unverified 09/17/17 21:06 Exam Vital Signs: Temperature 97.5 F 09/17/17 15:33 Pulse Rate 64 09/17/17 18:45 Respiratory Rate 27 H 09/17/17 18:45 Blood Pressure 155/66 H 09/17/17 18:45 Pulse Oximetry 95 09/17/17 18:45 Telemetry Rhythm: Sinus Rhythm - Constitutional Present: no acute distress, well nourished, well developed - Routine HEENT Exam Head: Present: normocephalic, atraumatic Eye: Present: EOMI, PERRL ENT: Present: mucous membranes dry, nares patent - Routine Neck Exam Present: supple, full ROM. Absent: JVD - Routine Respiratory Exam Present: CTA bilaterally. Absent: respiratory distress - Routine Cardiovascular Exam Present: RRR, no murmur - Routine Abdominal Exam Present: soft, normoactive bowel sounds, non distended, non tender - Routine Extremities Exam Absent: cyanosis, clubbing, edema - Routine Neurological Exam Present: alert, oriented X3, CN II-XII intact. Absent: sensory deficit, motor deficit - Routine Psychiatric Exam Present: normal affect, normal thought process Results - Labs CBC & Chem 7: 09/17/17 16:12 09/17/17 16:12 Assessment and Plan Assessment and Plan: Assessment: 1) Acute Syncopal episode following mutiple bouts of diarrhea and abdominal cramping - prodromal symptoms of lightheadedness, diaphoresis and "feeling hot" prior to syncope; had some twitching of left side of face and left arm shaking - no h/o seizures 2) Acute Gastroenteritis w/ abdominal cramping, diarrhea, nausea 3) Acute Dehydration POA 4) HTN history - however patient states her BP was "low" when EMS check this afternoon 5) GERD w/ h/o diaphragmatic / hiatal hernia 7) H/o occasional palpitations - no specific diagnosis and multiple stress tests "normal" per patient's report except mention of MVP 8) HLD - diet controlled Plan: Admit to Hospitalist service Telemetry Serial troponins Supportive care IVFs that of NS at 100 cc/hour Clear liquid diet to be advanced as tolerated Orthostatic BPs Resume home meds as indicated w/ parameters on BP meds Consider stool studies if diarrhea persists I have discussed the plan of care w/ the patient and the patient verbalized understanding and agreement. DVT Prophylaxis: SCD's GI Prophylaxis: Protonix Resuscitation Status: Full Code Hospital Course Summary Disclaimer: The visit summary below is not to be considered part of the above Progress Note.
[2017-09-17] MEDS ORDERED: ACETAMINOPHEN 325 MG TABLET PO PRN (20:48)
[2017-09-17] MEDS ORDERED: ONDANSETRON 4 MG/2 ML INJECTION IVP PRN (20:48)
[2017-09-17 20:49] VITALS: BMI 34.9
[2017-09-17] MEDS: NS 1,000 ML IV SCH (22:33)
[2017-09-17] MEDS: MELOXICAM 7.5 MG TABLET PO SCH (22:45)
[2017-09-17] MEDS: LISINOPRIL 10 MG TABLET PO SCH (22:46)
[2017-09-18] MEDS ORDERED: OMEPRAZOLE 20 MG CAPSULE PO SCH (06:30)
[2017-09-18 08:14] VITALS: BP 146/59; RESP 16; TEMP 96.4; O2SAT 94
[2017-09-18] MEDS ORDERED: ASPIRIN 81 MG CHEWABLE TABLET PO SCH (09:00)
[2017-09-18] MEDS ORDERED: DOCUSATE SODIUM 100 MG CAPSULE PO SCH (09:00)
[2017-09-18] MEDS: NS 1,000 ML IV SCH (09:50)
[2017-09-18] MEDS: LISINOPRIL 10 MG TABLET PO SCH (09:50)
[2017-09-18] MEDS: MELOXICAM 7.5 MG TABLET PO SCH (09:50)
[2017-09-18 10:00] VITALS: PULSE 70
--- NOTE | 2017-09-18 15:23 | Discharge Summary ---
Discharge Information Date of admission: 09/17/17 19:20 Anticipated date of discharge: 09/18/17 Attending Physician: Nohemy Escalante MD Primary care physician: Usama Lopez MD - Laboratory Labs: 09/18/17 06:06 09/18/17 06:06 History of Present Illness HPI: Vivi is a 77y/o female w/ h/o HTN, GERD(hiatal/diaphragmatic hernia) who presents to ED at [facility] this afternoon following episode of abdominal cramping, diarrhea, lightheadedness and brief syncopal episode today and was brought in by EMS. Patient reports abdominal cramping today followed by a "normal" stool around noon and then an hour later started having multiple diarrheal stools ( liquid w/ "flakes" of stool). After last bout of diarrhea, she felt diaphoretic and lightheaded when she tried to get up from the toilet. She callled her daughter and she came over and they notified EMS as the daughter states the patient had brief LOC along w/ twitching of the left side of the face and shaking of the left arm. Patient states she "came to" about the time EMS arrived. Patient states that EMS took her BP and it was "low" but not sure of exact BP at that time. Patient states that prior to the episode she was "feeling fine" and denies f/c/s , recent acute illness, LEIJA, focal neuro deficits and further denies chest pain and shortness of breath. Patient denies h/o seizures and denies h/o head trauma. Patient states she had similar episode of "fainting" when she was doing the prep for a colonoscopy a few years ago. EMS arrived and brought the patient to the ED. In the ED, patient had EKG showing NSR and non-specific ST-T wave changes and noted to have a WBC of 15.8, a BUN of 34 and a Cr of 1 and ER provider felt that patient was dehydrated so started NS at 200 cc/hour. Troponin < 0.012 and UA negative. Patient admitted to the Hospitalist service for further evaluation and management. At present when I am visiting w/ her she states that she feels "much better" and denies abdominal pain and denies nausea and states she is hungry and would like something to eat. Objective Vital signs: Temperature 96.4 F L 09/18/17 08:00 Pulse Rate 70 09/18/17 08:00 Respiratory Rate 16 09/18/17 08:00 Blood Pressure 146/59 H 09/18/17 08:00 Pulse Oximetry 94 09/18/17 08:00 Height/Weight/BMI: Height 5 ft 2 in Weight 86.9 kg Body Mass Index 34.9 Hospital Course This is a general summary of the patient's hospital course. For more details refer to the complete medical record. Hospital course: Pt was admitted d/t syncopal episode and diarrhea with elevated WBC count. Pt got IV fluids and had no more diarrheal episodes in the hospital. Pt's labs also normalized the next day. Pt reported she went to a restaurant the night before and had sushi and some meat dish. This was likely the etiology behind the gastroenteritis and the syncopal episode described by the pt was consistent with vasovagal syncope. Pt felt back to baseline and was discharged home with no changes to her medications. Discharge Plan - Discharge Disposition Disposition: Discharged Home, Self-Care *Condition: Stable Reason For Visit (Visit label in EMR): Dehydration,n/v ,pre syncopal - Discharge Medications *Discharge Medications: Continue Omeprazole 20 mg PO ACB #30 cap Aspirin [[place]ole Aspirin] 81 mg PO DAILY Metoprolol Tartrate [Lopressor] 50 mg PO BIDWM Meloxicam [Mobic] 7.5 mg PO BID Lisinopril 10 mg PO DAILY #0 No Action diphenhydrAMINE HCl [Benadryl] 25 mg PO PRN Acetaminophen [Tylenol Extra Strength] 500 - 1,000 mg PO Q6H PRN #60 tab PRN Reason: Pain Wheat Dextrin [Benefiber] 1 each PO PRN Docusate Sodium [Colace] 100 mg PO DAILY - Discharge Packet/Instructions *Diet: Advance as tolerated to regular diet *Activity: Regular *Pain Management/Treatment: NA *Expected Signs/Symptoms: Mild abdominal discomfort, occasional diarrhea *Notify Physician if: More fainting episodes, severe abdominal pain or diarrhea , fever/chills *During Business Hours Contact: Primary Care Doctor *After Business Hours Contact: ED/Urgent Care *Pending Lab/Results: No Pending Lab - Referrals/Follow Up - Patient Handouts - Dismissal Complete Discharge Instructions are:: Complete
== END 2017-09-18 16:36 | disposition home or self-care (01) ==
LOC: ED 15:33 → MED 15:33 → SUATTDRO 19:20 → MED 20:36
PROVIDERS: ADMIT Internal Medicine; ATTEND Hospitalist

== ENCOUNTER 2017-11-28 19:31 | Inpatient (IN) ==
--- OUTSIDE RECORDS SUMMARY | 2017-11-28 19:47 | External Medical Summary | Continuity of Care Document ---
:1940 Author Organization [facility] Allergies There is no data. Medications There is no data. Problems There is no data. Procedures There is no data. Results There is no data. Encounters ACCT No. Visit Discharge Status Pt. Type Provider Facility Loc./Unit Complaint Date/Time [id number] 12/16/2013 12/16/2013 [facility] Outpatient 08:19:00 23:59:59 [id number] 08/21/2013 08/21/2013 [facility] Outpatient 09:49:00 23:59:59
[2017-11-28] MEDS ORDERED: MORPHINE SULFATE 4mg INJECTION IVP ONE (20:03)
--- NOTE | 2017-11-28 20:06 | Emergency Department Report ---
Abdominal Pain HPI - General Chief Complaint: Abdominal Pain Stated Complaint: Pain in stomach and abd, diff passing stool Time Seen by Provider: 11/28/17 19:39 Source: patient Mode of arrival: ambulatory Limitations: no limitations - History of Present Illness MD complaint: abdominal pain Onset (ago): day(s) (Started 5 days ago) Consistency: constant Location: epigastric Severity: moderate Quality: sharp Migration to: no migration Relieving factors: nothing Exacerbating factors: nothing Associated symptoms: nausea, vomiting - Related Data Home Medications Medication Instructions Recorded Confirmed Aspirin [[place] Aspirin] 81 mg PO DAILY 09/17/17 11/28/17 Meloxicam [Mobic] 7.5 mg PO BID 09/17/17 11/28/17 Metoprolol Tartrate [Lopressor] 50 mg PO BIDWM 09/17/17 11/28/17 Wheat Dextrin [Benefiber] 1 each PO PRN PRN 09/17/17 11/28/17 diphenhydrAMINE HCl [Benadryl] 25 mg PO Q4H PRN 09/17/17 11/28/17 Acetaminophen [Acetaminophen Extra 1,000 mg PO Q6H PRN 11/28/17 11/28/17 Strength] Docusate Sodium [Colace] 100 mg PO DAILY PRN 11/28/17 11/28/17 Lisinopril [Prinivil] 10 mg PO DAILY 11/28/17 11/28/17 Multivitamin [One Daily] 1 tab PO DAILY 11/28/17 11/28/17 Omeprazole [Prilosec] 20 mg PO DAILY 11/28/17 11/28/17 Allergies Allergy/AdvReac Type Severity Reaction Status Date / Time No Known Allergies Allergy Verified 11/28/17 19:58 Review of Systems Constitutional: Denies: fever, chills, weakness Cardiovascular: Denies: chest pain, palpitations, dyspnea on exertion, edema Respiratory: Denies: cough, dyspnea, wheezes Gastrointestinal: Reports: abdominal pain, nausea, vomiting, constipation. Denies: diarrhea Genitourinary: Denies: urgency, dysuria, frequency Integumentary: Denies: rash Neurological: Denies: headache, weakness, numbness, paresthesias PFS Patient Stated Medical History Seizures Yes: one episode while in the hospital with GI bleed Transient Ischemic Attacks ( Yes: DOUBLE VISION FOR ONE HOUR 2016 TIA) Cataracts Yes: REMOVED BILATERAL Other HEENT Yes: wears glasses Cardiac Arrhythmia Yes: WITH FRACTURED HIP IN 2016 Hypertension Yes Other GI Yes: diaphragmatic hernia Blood Transfusions Yes: 2014 with GI bleed Clinic Medical History (Last Reviewed 09/29/17 @ 09:36 by JURGEN Le) GERD (gastroesophageal reflux disease) (Chronic Medical) Constipation (Chronic Medical) HTN (hypertension) (Chronic Medical) Osteoarthritis (Chronic Medical) Surgical History: R hip fx-09/27/16; hysterectomy; A&O repair-1993 Family History: Family History (Last Reviewed 09/29/17 @ 09:36 by JURGEN Le) Mother Dementia Arthritis Father Throat cancer Heart failure - Social History Smoking status: Never smoker Physical Exam - Limitations Limitations: no limitations - General General appearance: alert, in no apparent distress - Normal Exams: Neck:: Full range of motion, without adenopathy, JVD, bruits or thyromegaly Chest/Respirations:: Clear all [place], with good airflow, and symmetry bilaterally Cardiovascular:: Regular rate and rhythm, without murmur or gallop, Pulses 2+ all extremities, capillary refill, <2 seconds all extremities Abdomen:: Bowel sounds positive, non-distended, no hepatosplenomegaly, masses or bruits noted Neurological:: Patient is alert, and oriented Psychiatric:: Patient exhibits, appropriate attention, emotion and affect - Abdominal Exam Abdominal exam: Present: soft, tenderness (TTP in the epigastric region- moderately), diminished bowel sounds. Absent: distention, guarding, rebound Course Vital Signs Temperature 98.1 F 11/28/17 19:43 Pulse Rate 104 H 11/28/17 19:43 Respiratory Rate 18 11/28/17 19:43 Blood Pressure 138/83 11/28/17 19:43 Pulse Oximetry 94 11/28/17 19:43 Temperature 98.1 F 11/28/17 19:43 Pulse Rate 104 H 11/28/17 19:43 Respiratory Rate 18 11/28/17 19:43 Blood Pressure 138/83 11/28/17 19:43 Pulse Oximetry 94 11/28/17 19:43 Abdominal Pain - MDM Narrative Medical decision making narrative: Ct does show possible partial small bowel obstruction vs segmental ileus. Labs are unremarkable. She states that she has not been able to eat or drink at all today due to increased pain with any intake. Given her age and inability to take PO did talk with Dr Noriega and he will accept for admission. - Differential Diagnosis Differential diagnosis: Likely: abdominal pain, constipation, pancreatitis - Lab Data Attestation: I reviewed the patient's lab results. Result diagrams: 11/28/17 20:22 11/28/17 20:22 - Radiology Data Attestation: I reviewed the patient's radiology results. Ct abdomen/pelvis with IV contrast: Segmental mild thickening of the mid small bowel with borderline dilatation, mild surrounding mesenteric edema adn adjacent reactive prominent lymph nodes. Segmental ileus and partial small bowel obstruction and coexisting mild enteritis is in the differential. Disposition Clinical Impression: Partial small bowel obstruction Disposition: 02 To [facility] Acute Care Condition: Stable Prescriptions: No Action Aspirin [[place] Aspirin] 81 mg PO DAILY Metoprolol Tartrate [Lopressor] 50 mg PO BIDWM Meloxicam [Mobic] 7.5 mg PO BID diphenhydrAMINE HCl [Benadryl] 25 mg PO Q4H PRN PRN Reason: Prn Orders Acetaminophen [Acetaminophen Extra Strength] 1,000 mg PO Q6H PRN PRN Reason: Pain Docusate Sodium [Colace] 100 mg PO DAILY PRN PRN Reason: Constipation Multivitamin [One Daily] 1 tab PO DAILY Wheat Dextrin [Benefiber] 1 each PO PRN PRN PRN Reason: Prn Orders Omeprazole [Prilosec] 20 mg PO DAILY Lisinopril [Prinivil] 10 mg PO DAILY Time of Disposition: 22:45 - Seen By: jaskaran
[2017-11-28] MEDS ORDERED: ONDANSETRON 4 MG/2 ML INJECTION IVP ONE (20:17)
[2017-11-28] MEDS: SALINE FLUSH 10ml SYRINGE IVF PRN (20:33)
[2017-11-28] MEDS ORDERED: IOHEXOL 300mg/ml 100ml INJECTION ONE (21:30)
[2017-11-28] MEDS ORDERED: SALINE FLUSH 10ml SYRINGE ONE (21:31)
[2017-11-28] MEDS ORDERED: MORPHINE SULFATE 4mg INJECTION IVP PRN (23:40)
[2017-11-28] MEDS ORDERED: ONDANSETRON 4 MG/2 ML INJECTION IVP PRN (23:40)
[2017-11-28] MEDS ORDERED: METOCLOPRAMIDE 10mg/2ml INJECTION IVP PRN (23:40)
[2017-11-29 00:11] VITALS: BMI 34.2
[2017-11-29] MEDS: SALINE FLUSH 10ml SYRINGE IVF PRN (00:39)
[2017-11-29] MEDS: NS 1,000 ML IV SCH ×3 (00:39→20:29)
[2017-11-29] MEDS ORDERED: BISACODYL 10 MG SUPPOSITORY RECTALLY ONE (00:43)
--- NOTE | 2017-11-29 00:48 | History & Physical Report ---
History of Present Illness Date: 11/29/17 Chief complaint: abdominal pain HPI: Patient was seen with nursing assistance on 11/29/2017. Ms. Barton is a very pleasant 77yo woman with h/o essential HTN, hiatal hernia/ GERD, TIA, hysterectomy, and hip fx repair last year. She presents with 5 day history of abdominal pain more epigastric and worse with PO. No nausea or vomiting, last BM 11/27 with flatus yesterday. No CP or SOB. Appetite poor because pain with PO. No fevers or chills. SBO by CT with her denying these before. No med changes. Review of Systems All systems PM: 10-point ROS was reviewed, no additional remarkable complaints except Past Medical History Patient Stated Medical History Seizures Yes: one episode while in the hospital with GI bleed Transient Ischemic Attacks ( Yes: DOUBLE VISION FOR ONE HOUR 2016 TIA) Cataracts Yes: REMOVED BILATERAL Other HEENT Yes: wears glasses Cardiac Arrhythmia Yes: WITH FRACTURED HIP IN 2015 Hypertension Yes Other GI Yes: diaphragmatic hernia Blood Transfusions Yes: 2014 with GI bleed Clinic Medical History (Last Reviewed 09/29/17 @ 09:36 by JURGEN Le) GERD (gastroesophageal reflux disease) (Chronic Medical) Constipation (Chronic Medical) HTN (hypertension) (Chronic Medical) Osteoarthritis (Chronic Medical) Surgical History: R hip fx-09/27/16; hysterectomy; A&O repair-1993 Family History: Family History (Last Reviewed 09/29/17 @ 09:36 by JURGEN Le) Mother Dementia Arthritis Father Throat cancer Heart failure Family History Updates: mother of likely multiinfarct dementia, father from CAD and laryngeal cancer in his 70s - Social History Smoking status: Never smoker Substance use type: does not use Alcohol intake frequency: does not drink Housing: house Household members: none Medications Home Medications Medication Instructions Recorded Confirmed Type Aspirin [[place] Aspirin] 81 mg PO DAILY 09/17/17 11/28/17 History Meloxicam [Mobic] 7.5 mg PO BID 09/17/17 11/28/17 History Metoprolol Tartrate [Lopressor] 50 mg PO BIDWM 09/17/17 11/28/17 History Wheat Dextrin [Benefiber] 1 each PO PRN PRN 09/17/17 11/28/17 History diphenhydrAMINE HCl [Benadryl] 25 mg PO Q4H PRN 09/17/17 11/28/17 History Acetaminophen [Acetaminophen Extra 1,000 mg PO Q6H PRN 11/28/17 11/28/17 History Strength] Docusate Sodium [Colace] 100 mg PO DAILY PRN 11/28/17 11/28/17 History Lisinopril [Prinivil] 10 mg PO DAILY 11/28/17 11/28/17 History Multivitamin [One Daily] 1 tab PO DAILY 11/28/17 11/28/17 History Omeprazole [Prilosec] 20 mg PO DAILY 11/28/17 11/28/17 History Allergies Allergy/AdvReac Type Severity Reaction Status Date / Time No Known Allergies Allergy Verified 11/28/17 19:58 Exam Vital Signs: Temperature 97.1 F 11/29/17 00:16 Pulse Rate 88 11/29/17 00:16 Respiratory Rate 22 11/29/17 00:16 Blood Pressure 143/66 H 11/29/17 00:16 Pulse Oximetry 92 11/29/17 00:16 Telemetry Rhythm: Sinus Rhythm Height/Weight/BMI: Height 1.57 m Weight 84.8 kg Body Mass Index 34.2 - Constitutional Present: mild distress - Routine HEENT Exam Head: Present: normocephalic Eye: Present: EOMI - Routine Respiratory Exam Present: CTA bilaterally - Routine Cardiovascular Exam Present: RRR, S1, S2, no murmur - Routine Abdominal Exam Comments: mildly distended with hyperactive but not tympanitic bowel sounds, tender with no guarding - Routine Extremities Exam Absent: cyanosis, clubbing - Routine Skin Exam Present: intact - Routine Neurological Exam Present: alert, oriented X3, CN II-XII intact - Routine Psychiatric Exam Present: normal affect Results - Labs CBC & Chem 7: 11/29/17 04:35 11/29/17 04:35 Assessment and Plan (1) Partial small bowel obstruction Current visit: Yes Status: Acute (2) GERD (gastroesophageal reflux disease) Current visit: No Status: Chronic (3) HTN (hypertension) Current visit: No Status: Chronic (4) Dehydration Current visit: No Status: Acute Assessment and Plan: 1. Partial SBO--admit to inpatient with NPO, IVF, prn pain and nausea medications. f/u final CT read with no transition point on initial read. Dulcolax supp and repeat am Xrays. Check TSH with no other severe metabolic or infectious issue. As needed surg consult. 2. Essential HTN--hold lisinopril and continue metoprolol (h/o what was likely post op afib last year) 3. HHernia and GERD, continue PPI. 4. DJD and hip fx hx--vitamin D? 5. Leukocytosis with no fever. Likely stress with 1, monitor temp and recheck this AM. DVT Prophylaxis: SCD's Resuscitation Status: Do Not Resuscitate - Physician Narrative Physician: Jarrett Littlejohn MD Narrative: Date: 11/29/17 Time: 1100 Have independently interviewed and examined pt. Chart reviewed. Reviewed above note and concur. CC: Abdominal pain HPI: 77 y/o female presents to ED secondary to progressively increasing ab pain. She reports bowels are always slow and crampy-attributes to HH with part of colon above diaphragm. Will utilize medications as needed to promote bowel regularity and typically has good success. On 11/23, noticed increased ab pain post eating-cramping bloating. Stools become more slow-really decreased by Monday/Mon. On Monday, was still passing flatus so she took pericolace for help with bowel function. Appetite started to decrease as oral intake would increase her discomfort. Denies n/v. No f/c. By day of presentation, not able to even take water as would have severe increase in her pain. Pain becoming more constant. Feeling more weak due to decreased intake. No palpitations, but feeling more orthostatic. No falls or trauma. Decreasing urine output secondary to decreased intake. By evening of the , son brought her to [facility] for evaluation. WBC with elevation. CT ab/pelvis showing SBO. Admitted for further treatment. PHMx: HTN, HDL, GERD/Hiatal hernia, OA, Cataracts, sigmoid diverticulosis, Hx Diverticular GI bleed. PSHx: Hx of Hyst, Right hip fracture and repair in 2016. All: NKDA MEDS: see MAR SHx: . [place] of [place]. No smoke/ETOH. 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 FHx: Son with lymphoma. Daughter with melanoma. Father of CAD & Laryngeal Ca in his 70's. Mother with Dementia. ROS: As in HPI. 10 point ROS discussed with patient and neg except for right knee pain. EXAM GEN: [id number] A&O HEENT: NC/AT PERRLA EOMI MM dry Neck: mildline, supple, no tracheal deviation. Lungs: clear bilaterally. No crackles or wheezes. No distress on RA. CV: regular rate and rhythm without murmur AB: soft, nt/nd, BS very minimal. No rebound/guarding EXT: No C/C/E. Strong and equal radial pulses bilaterally. SCD in place. Neuro: CN II-XII intact. No focal motor deficits Psych: awake alert appropriate. Thoughts linear. Communicates well. Skin: warm and dry. MS: normal muscle strength and tone of upper and lower ext. Lab: Reviewed. Assessment Partial small bowel obstructions - likely adhesive disease secondary to hyst. Ab pain secondary to SBO Leukocytosis Dehydration secondary to decreased oral intake Chronic constipation GERD with Hiatal hernia HTN HDL OA Gait instability Plan Inpatient admission for treatment of SBO. IVF of NS to maintain hydration. Bowel rest secondary to SBO. Control pain/nausea. Dulcolax given on arrival to stimulate bowel function. Will consult with Dr Godfrey secondary to SBO. Hope for resolution medically. SCD for DVT prevention. Nursing to ambulate to help preserve strength and to help with bowel function. Monitor lab. Discussed code status with patient. She requests DNR. Order written. Care to return to Dr Lopez at time of discharge from [facility]. Hospital Course Summary Disclaimer: The visit summary below is not to be considered part of the above Progress Note. Hospital Course: 11/28/17 Inpatient admission for treatment of SBO. IVF of NS to maintain hydration. Bowel rest secondary to SBO. Control pain/nausea. Dulcolax given on arrival to stimulate bowel function. SCD for DVT prevention. Nursing to ambulate to help preserve strength and to help with bowel function. Monitor lab. Discussed code status with patient. She requests DNR. Order written. Care to return to Dr Lopez at time of discharge from [facility].
--- NOTE | 2017-11-29 07:47 | CT Scan Report ---
Indication: abdominal pain PROCEDURE: CT abdomen pelvis w con: Encounter: Initial Comparison: November 01, 2014 Technique: Axial CT images were performed through the abdomen and pelvis after the administration of intravenous contrast. Coronal and sagittal two-dimensional reformats. Automated Exposure Control and Iterative Reconstruction dose reducing techniques were utilized. Contrast: Omnipaque 300 100 mL Findings: Large posterior diaphragmatic defect containing stomach and portions of the colon and pancreas. The liver is unremarkable. Gallbladder is distended without obvious stone disease or inflammation. The spleen and pancreas are otherwise normal. The adrenal glands are normal. Bilateral renal cysts. No abdominal or pelvic adenopathy. Metallic artifact from right hip replacement. Bladder is grossly normal. Uterus is absent. Extensive sigmoid diverticulosis without evidence of diverticulitis the splenic flexure of the colon is not entirely included in the [id number]. There is a single prominent loop of mildly fecalized small bowel in the left lower abdomen and pelvis measuring 3.1 cm in diameter on axial image #62. This has some slight surrounding mesenteric edema. The remaining small bowel is decompressed. Bone windows show no acute findings. Impression: Single mildly prominent loop of small bowel in the left lower abdomen and pelvis could be due to a focal ileus, enteritis or developing partial small bowel obstruction. There is a preliminary report by [employer]. .
--- NOTE | 2017-11-29 08:50 | XRay Report ---
Indication: sbo PROCEDURE: XR abdomen 2V: Encounter: Initial Comparison: CT abdomen dated November 28, 2017 Findings: The visualized lung bases show the left-sided diaphragmatic hernia. There is no free air on the upright view. The bowel gas pattern is nonobstructive and nonspecific. Gas is seen in nondilated small and large bowel to the level of the rectum. Moderate stool is seen throughout the colon. Small amount of residual contrast in the renal collecting systems. The prominent loop of small bowel seen by CT is not visible radiographically. Impression: Nonobstructive nonspecific bowel gas pattern. .
[2017-11-29] MEDS: OMEPRAZOLE 20 MG CAPSULE PO SCH (09:29)
[2017-11-29] MEDS ORDERED: BISACODYL 10 MG SUPPOSITORY RECTALLY PRN (10:31)
[2017-11-29] MEDS ORDERED: ACETAMINOPHEN 325 MG TABLET PO PRN (10:31)
[2017-11-30] MEDS: OMEPRAZOLE 20 MG CAPSULE PO SCH (05:58)
[2017-11-30] MEDS: NS 1,000 ML IV SCH ×2 (05:58→16:13)
--- NOTE | 2017-11-30 08:38 | XRay Report ---
Indication: SBO PROCEDURE: XR abdomen 2V: Encounter: Initial Comparison: November 29, 2017 Findings: Large posterior diaphragmatic defect again noted. No free intraperitoneal air. The bowel gas pattern is radiographically nonobstructive. There is scattered small and large bowel gas seen to the level of the rectum. Mild to moderate stool in the right colon. Impression: No radiographic evidence of acute bowel obstruction. .
--- NOTE | 2017-11-30 09:03 | General Surgery Consult Note ---
Consult date: 11/30/17 Attending Physician: Jarrett Littlejohn MD Reason for consult: abdominal pain [facility] Patient Stated Medical History Seizures Yes: one episode while in the hospital with GI bleed Transient Ischemic Attacks ( Yes: DOUBLE VISION FOR ONE HOUR 2016 TIA) Cataracts Yes: REMOVED BILATERAL Other HEENT Yes: wears glasses Cardiac Arrhythmia Yes: WITH FRACTURED HIP IN 2015 Hypertension Yes Other GI Yes: diaphragmatic hernia Blood Transfusions Yes: 2014 with GI bleed Clinic Medical History (Last Reviewed 09/29/17 @ 09:36 by JURGEN Le) GERD (gastroesophageal reflux disease) (Chronic Medical) Constipation (Chronic Medical) HTN (hypertension) (Chronic Medical) Osteoarthritis (Chronic Medical) Medical History Updates: On echocardiogram read by Dr. Jeong: 1. Normal LV systolic function with ejection fraction of 55%. 2. Mitral annulus calcification with trace of mitral regurgitation. 3. Aortic sclerosis with moderate aortic insufficiency. 4. Moderate tricuspid regurgitation with moderate to severe pulmonary hypertension with estimated. pulmonary artery systolic pressure of 65. Surgical History: -R hip fx Total hip-09/25/16;. - hysterectomy;. -A&P repair- 1993. -EGD normal 11/05/2014. -Colonoscopy, diverticula likely cause of bleeding 11/05/2014. Family History: Family History (Last Reviewed 09/29/17 @ 09:36 by JURGEN Le) Mother Dementia Arthritis Father Throat cancer Heart failure SON LYmphoma DAUGHTER Melanoma - Social History Smoking status: Never smoker Medications Home Medications Medication Instructions Recorded Confirmed Type Aspirin [Mcdowell Aspirin] 81 mg PO DAILY 09/17/17 11/28/17 History Meloxicam [Mobic] 7.5 mg PO BID 09/17/17 11/28/17 History Metoprolol Tartrate [Lopressor] 50 mg PO BIDWM 09/17/17 11/28/17 History Wheat Dextrin [Benefiber] 1 each PO PRN PRN 09/17/17 11/28/17 History diphenhydrAMINE HCl [Benadryl] 25 mg PO Q4H PRN 09/17/17 11/28/17 History Acetaminophen [Acetaminophen Extra 1,000 mg PO Q6H PRN 11/28/17 11/28/17 History Strength] Docusate Sodium [Colace] 100 mg PO DAILY PRN 11/28/17 11/28/17 History Lisinopril [Prinivil] 10 mg PO DAILY 11/28/17 11/28/17 History Multivitamin [One Daily] 1 tab PO DAILY 11/28/17 11/28/17 History Omeprazole [Prilosec] 20 mg PO DAILY 11/28/17 11/28/17 History Allergies Allergy/AdvReac Type Severity Reaction Status Date / Time No Known Allergies Allergy Verified 11/28/17 19:58 Review of Systems 10-point ROS: negative except for HPI and the following: - Gastrointestinal Gastrointestinal: Present: other (see HPI) - Musculoskeletal Musculoskeletal: Present: joint pain - Neurological Neurological: Present: muscle weakness - Vital Signs Last Vital Signs Temp 98.3 F 11/30/17 07:00 Pulse 70 11/30/17 07:00 Resp 16 11/30/17 07:00 BP 105/48 11/30/17 07:00 Pulse Ox 91 11/30/17 07:00 - Laboratory Result Diagrams: 11/30/17 04:15 11/30/17 04:15 General Surgery Results - Results Labs: 11/30/17 04:15 11/30/17 04:15 Hospital Course Summary Disclaimer: The visit summary below is not to be considered part of the above Progress Note. Hospital Course: 11/28/17 Inpatient admission for treatment of SBO. IVF of NS to maintain hydration. Bowel rest secondary to SBO. Control pain/nausea. Dulcolax given on arrival to stimulate bowel function. SCD for DVT prevention. Nursing to ambulate to help preserve strength and to help with bowel function. Monitor lab. Discussed code status with patient. She requests DNR. Order written. Care to return to Dr Lopez at [place] [facility] [place]
--- NOTE | 2017-11-30 13:41 | Progress Note ---
- Date 11/30/17 Subjective: Patient seen this morning lying in bed. Reports she is having no pain. She is passing gas. Passed a very small amt of liquid last night with flatus. Continues NPO. No n/v/f/c. Objective Vital signs: Temperature 98.3 F 11/30/17 07:00 Pulse Rate 70 11/30/17 07:00 Respiratory Rate 16 11/30/17 07:00 Blood Pressure 105/48 11/30/17 07:00 Pulse Oximetry 91 11/30/17 07:00 Height/Weight/BMI: Height 1.57 m Weight 84.4 kg Body Mass Index 34.2 - Constitutional Present: no acute distress, well nourished, well developed - Routine HEENT Exam Head: Present: normocephalic, atraumatic - Routine Respiratory Exam Present: CTA bilaterally. Absent: wheezes - Routine Cardiovascular Exam Present: RRR, no murmur - Routine Abdominal Exam Present: soft, normoactive bowel sounds, non distended, non tender. Absent: tenderness - Routine Extremities Exam Present: no edema, normal capillary refill - Routine Skin Exam Present: dry, warm - Routine Neurological Exam Present: alert, oriented X3 - Routine Lymphatic Exam Lymphatic: Absent: adenopathy - Routine Psychiatric Exam Present: normal affect, cooperative Results - Labs CBC & Chem 7: 11/30/17 04:15 11/30/17 04:15 - Imaging and Cardiology Abdominal x-ray Additional comments: Date of Exam: 11/30/17 Indication: SBO PROCEDURE: XR abdomen 2V: Findings: Large posterior diaphragmatic defect again noted. No free intraperitoneal air. The bowel gas pattern is radiographically nonobstructive. There is scattered small and large bowel gas seen to the level of the rectum. Mild to moderate stool in the right colon. Impression: No radiographic evidence of acute bowel obstruction. Assessment and Plan (1) Dehydration Current visit: No Status: Acute (2) HTN (hypertension) Current visit: No Status: Chronic (3) GERD (gastroesophageal reflux disease) Current visit: No Status: Chronic (4) Partial small bowel obstruction Current visit: Yes Status: Acute Assessment and Plan: Assessment Partial small bowel obstruction vs ileus Abd pain secondary to SBO/ileus -resolved Leukocytosis Dehydration secondary to decreased oral intake -resolved Chronic constipation GERD with Hiatal hernia HTN HDL OA Gait instability Plan Hgb has dropped since admission 14.0-->11.2 - likely dilutional. Repeat CBC in am. Passing flatus and has smearing. Discussed with Tay Diego APRN - ok to advance to clear liquids. Trial of repeat dulcolax supp now. - Physician Narrative Physician: Jethro Gray MD Narrative: Date: 11/30/17 Time: 1510 I have independently evaluated and examined this patient. I reviewed the chart, the patient's history, and the HEALTH THERAPIST/PA's documented findings as above. We discussed and formulated the assessment and plan as above with additions as below: Patient is resting comfortably. Has had flatus today. Had small stool/smear yesterday. No n/v. No abdominal pain. Says she has been ambulating in the room. NAD. CTAB. RRR. s/nt/nd +bs. No edema. Start on clears. Suppository given. Start fiber. Patient takes benefiber at times at home. Hospital Course Summary Disclaimer: The visit summary below is not to be considered part of the above Progress Note. Hospital Course: 11/28/17 Inpatient admission for treatment of SBO. IVF of NS to maintain hydration. Bowel rest secondary to SBO. Control pain/nausea. Dulcolax given on arrival to stimulate bowel function. SCD for DVT prevention. Nursing to ambulate to help preserve strength and to help with bowel function. Monitor lab. Discussed code status with patient. She requests DNR. Order written. Care to return to Dr Lopez at time of discharge from [facility] [place]. 11/30/17 Hgb has dropped since admission 14.0-->11.2 - likely dilutional. Repeat CBC in am. Passing flatus and has smearing. Will advance diet to clear liquids. Trial of repeat dulcolax supp now.
[2017-11-30] MEDS ORDERED: BISACODYL 10 MG SUPPOSITORY RECTALLY ONE (13:54)
[2017-11-30] MEDS: POLYETHYL GLYCOL 3350 17gm PACKET PO SCH ×3 (16:15→20:06)
--- NOTE | 2017-11-30 18:31 | Consultation ---
DATE OF CONSULTATION 11/30/2017 FINDINGS Ms. Barton is a 77-year-old female whom I was asked to see today as a result of her history for abdominal pain and recently obtained abnormal CT scan/ radiograph evaluation. Mrs. Barton is known to my surgical practice but I believe it has been a few years since I have seen her. Mrs. Barton has known for a number of years that she has a large diaphragmatic hernia. She had elected not to proceed with repair. Patient states that she has learned over the years that she is not "able to eat very much at a single setting." She states that she has learned to eat very frequent small meals throughout the day and into the evening. Patient states it is not unusual for her to have a component of pain after eating. This pain is located within her epigastric region and mid abdomen. Pain usually is fairly short-lived and resolves within 30 minutes to an hour. The patient states that about a week ago she began to notice that this pain was becoming more frequent in nature. The patient states that she had noted that her bowel activity had also decreased significantly. The patient is a retired nurse. The patient states that she did take a stool softener/laxative and subsequently had a "good BM." Patient states that she thought that she was "getting better" but later that day she began to once again develop increasing abdominal pain. Patient states the pain became severe enough that she did present to the ER for further evaluation. This afternoon/ evening the patient states that she is feeling well. Her abdominal pain has now resolved. Patient states she has begun some clear liquids and has no component of nausea or pain. PAST MEDICAL HISTORY, PAST SURGICAL HISTORY, MEDICATIONS, ALLERGIES, SOCIAL HISTORY, FAMILY HISTORY, REVIEW OF SYSTEMS Performed by my nurse practitioner, Tay Diego APRN. PHYSICAL EXAM GENERAL: Mrs. Barton is a 77-year-old female who this evening did not appear to be in acute distress. VITAL SIGNS: Temperature 97.0, pulse 74, respirations 16, blood pressure 132/91 , SAO2 94% on room air. HEENT: Normocephalic. Pupils are equally round and react to light and accommodation. CHEST: Clear to auscultation bilaterally. HEART: Regular rate and rhythm. Normal S1 and S2 without gallops, murmurs or clicks. ABDOMEN: Palpation of the abdomen this evening revealed it to be soft and completely nontender. I did not appreciate evidence for hepatosplenomegaly or other abnormal masses. EXTREMITIES: Without clubbing, cyanosis, or edema. NEURO: Cranial nerves II-XII grossly intact. Patient is without focal motor or sensory deficits. LABORATORY/RADIOGRAPHIC EVALUATION The patient had a CBC on November 28 and her white count at that time was elevated at 12.2. White count today is 7.9. Hemoglobin is slightly down at 11.2. BMP was obtained and found to be essentially within normal limits. I did review her prior radiographs. The patient had a CT scan of her abdomen and pelvis that was performed on November 28. The patient did have a large posterior diaphragmatic defect that has been present for a number of years. There was a prominent loop of small bowel within the left lower abdomen which was felt to perhaps be an ileus or developing partial small-bowel obstruction. The patient underwent a plain film of her abdomen today. There is no radiographic evidence for obstruction. ASSESSMENT 77-year-old female with multiple associated medical comorbidities who has a known large diaphragmatic hernia and presented with probable partial small- bowel obstruction that has resolved on its own behalf. Large diaphragmatic hernia appears to be symptomatic in nature. PLAN The patient was informed at this time it appears that she is improving on her own behalf. I informed the patient that with her advanced age and associated medical comorbidities, I would not recommend repairing her large diaphragmatic hernia at this time. Would recommend that we advance her diet as tolerated and follow her from a clinical standpoint. Once she is tolerating a regular diet and is pain-free the patient will be discharged at that time. I informed the patient that if in the future we were "forced into a corner" where she would develop obstruction of this large diaphragmatic hernia or develop severe symptoms that were life-threatening, at that time we would address the issue of proceeding with repair of her large diaphragmatic hernia. Patient agreed and did not want to have any type of elective surgery at this time in regards to her diaphragmatic hernia. This has been her wish for a number of years. [facility]
[2017-12-01] MEDS: NS 1,000 ML IV SCH ×2 (02:33→13:27)
[2017-12-01] MEDS: OMEPRAZOLE 20 MG CAPSULE PO SCH (06:19)
[2017-12-01] MEDS: POLYETHYL GLYCOL 3350 17gm PACKET PO SCH ×3 (07:56→20:54)
[2017-12-01] MEDS: SALINE FLUSH 10ml SYRINGE IVF PRN (07:57)
[2017-12-01] MEDS ORDERED: BISACODYL 10 MG SUPPOSITORY RECTALLY ONE (08:00)
--- NOTE | 2017-12-01 09:38 | XRay Report ---
Indication: f-u partial SBO PROCEDURE: XR abdomen 1V: Encounter: Initial Comparison: November 30, 2017 Findings: Bowel gas pattern is nonobstructive and nonspecific. No abnormally dilated gas filled loops of small or large bowel appreciated. Bony structures are unchanged. Right lung bases clear. Large diaphragmatic defect noted. Impression: Nonobstructive nonspecific bowel gas pattern. .
[2017-12-01] MEDS ORDERED: PSYLLIUM PACKET PO PRN (10:29)
--- NOTE | 2017-12-01 10:41 | Progress Note ---
- Date 12/01/17 Subjective: Patient is seen today sitting up in her chair. She reports she's having no pain. She had a small formed stool this morning. She is currently on a full liquid diet with plan to advance to regular diet at lunch. She has had 3 doses of MiraLAX. She reports she didn't have significant results with the suppository yesterday. The nurses report that after I was in to visit her, she had a moderate-sized, formed bowel movement. Objective Vital signs: Temperature 97.8 F 12/01/17 07:00 Pulse Rate 81 12/01/17 07:00 Respiratory Rate 20 12/01/17 07:00 Blood Pressure 152/67 H 12/01/17 07:00 Pulse Oximetry 92 12/01/17 07:00 Height/Weight/BMI: Height 1.57 m Weight 84.4 kg Body Mass Index 34.2 - Constitutional Present: no acute distress, well nourished, well developed - Routine HEENT Exam Head: Present: normocephalic, atraumatic - Routine Respiratory Exam Present: CTA bilaterally. Absent: wheezes - Routine Cardiovascular Exam Present: RRR, no murmur - Routine Abdominal Exam Present: soft, non distended, non tender - Routine Extremities Exam Present: no edema, normal capillary refill - Routine Skin Exam Present: dry, warm - Routine Neurological Exam Present: alert, oriented X3 - Routine Lymphatic Exam Lymphatic: Absent: adenopathy - Routine Psychiatric Exam Present: normal affect, cooperative Results - Labs CBC & Chem 7: 12/01/17 10:51 11/30/17 04:15 - Imaging and Cardiology Abdominal x-ray Additional comments: Date of Exam: 12/01/17 Indication: f-u partial SBO PROCEDURE: XR abdomen 1V: Findings: Bowel gas pattern is nonobstructive and nonspecific. No abnormally dilated gas filled loops of small or large bowel appreciated. Bony structures are unchanged. Right lung bases clear. Large diaphragmatic defect noted. Impression: Nonobstructive nonspecific bowel gas pattern. Assessment and Plan (1) Dehydration Current visit: No Status: Acute (2) HTN (hypertension) Current visit: No Status: Chronic (3) GERD (gastroesophageal reflux disease) Current visit: No Status: Chronic (4) Partial small bowel obstruction Current visit: Yes Status: Acute Assessment and Plan: Assessment Partial small bowel obstruction -resolved Abd pain secondary to SBO/ileus -resolved Leukocytosis -resolved Dehydration secondary to decreased oral intake -resolved Chronic constipation GERD with Hiatal hernia Anemia - unspecified HTN HDL OA Gait instability Plan No pain. Passing stools. Will advance her to regular diet as ordered at lunch and if she continues to do well, can DC. Resume home meds. - Physician Narrative Physician: Jethro Gray MD Narrative: Date: 12/01/17 Time: 1600 I have independently evaluated and examined this patient. I reviewed the chart, the patient's history, and the HEALTHCARE LIAISON/PA's documented findings as above. We discussed and formulated the assessment and plan as above with additions as below: Patient has had 2 small-moderate stools. She has tolerated eating. She lives alone and is worried about going home too soon. NAD. RRR. CTAB. S/NT/ND +BS. No edema Add lactulose, repeat suppository this evening and consider enema in am. Hospital Course Summary Disclaimer: The visit summary below is not to be considered part of the above Progress Note. Hospital Course: 11/28/17 Inpatient admission for treatment of SBO. IVF of NS to maintain hydration. Bowel rest secondary to SBO. Control pain/nausea. Dulcolax given on arrival to stimulate bowel function. SCD for DVT prevention. Nursing to ambulate to help preserve strength and to help with bowel function. Monitor lab. Discussed code status with patient. She requests DNR. Order written. Care to return to Dr Lopez at time of discharge from [facility] [place]. 11/30/17 Hgb has dropped since admission 14.0-->11.2 - likely dilutional. Repeat CBC in am. Passing flatus and has smearing. Will advance diet to clear liquids. Trial of repeat dulcolax supp now.
[2017-12-01] MEDS: MELOXICAM 7.5 MG TABLET PO SCH ×2 (11:18→20:53)
[2017-12-01] MEDS: LISINOPRIL 10 MG TABLET PO SCH (11:18)
[2017-12-01] MEDS ORDERED: LACTULOSE 20 GM/30 ML ORAL LIQUID PO ONE (16:05)
--- NOTE | 2017-12-01 17:31 | Progress Note ---
DATE OF SERVICE 12/01/2017 FINDINGS Ms. Barton today was without complaints. She was eating a regular lunch upon arrival into her room. She denied any element of abdominal pain. PHYSICAL EXAM VITAL SIGNS: Afebrile, normotensive. Current vitals include temperature 97.8, pulse 81, respirations 20, blood pressure 152/67, SAO2 92% on room air. HEENT: Normocephalic. Pupils are equally round and react to light and accommodation. CHEST: Clear to auscultation bilaterally. HEART: Regular rate and rhythm. Normal S1 and S2 without gallops, murmurs or clicks. ABDOMEN: Soft, completely nontender today. ASSESSMENT 77-year-old female with history for diaphragmatic hernia, partial small-bowel obstruction, abdominal pain that has resolved on its own behalf. PLAN The patient at this time is tolerating a regular diet. She is without significant abdominal pain. Will go ahead and sign off the patient's care at this time. If there is any need for surgical care over the course of the upcoming weekend, please contact Dr. Ng who will be on-call. [facility]
[2017-12-02] MEDS: NS 1,000 ML IV SCH ×2 (00:29→09:54)
[2017-12-02] MEDS: OMEPRAZOLE 20 MG CAPSULE PO SCH (06:21)
[2017-12-02 07:26] VITALS: BP 154/82; PULSE 72; RESP 16; TEMP 97.5; O2SAT 93
[2017-12-02] MEDS: MELOXICAM 7.5 MG TABLET PO SCH (08:12)
[2017-12-02] MEDS: POLYETHYL GLYCOL 3350 17gm PACKET PO SCH (08:13)
[2017-12-02] MEDS: LISINOPRIL 10 MG TABLET PO SCH (08:13)
--- NOTE | 2017-12-02 09:46 | Discharge Summary ---
Discharge Information Date of admission: 11/28/17 23:32 Anticipated date of discharge: 12/02/17 Attending Physician: Jethro Gray IV, MD Primary care physician: Usama Lopez MD Consults: Consulting Provider: Ambrose Godfrey - Discharge Diagnosis (1) Dehydration Status: Acute (2) HTN (hypertension) Status: Chronic (3) GERD (gastroesophageal reflux disease) Status: Chronic (4) Partial small bowel obstruction Status: Acute Partial small bowel obstruction -resolved Abd pain secondary to SBO/ileus -resolved Leukocytosis -resolved Dehydration secondary to decreased oral intake -resolved Chronic constipation GERD with Hiatal hernia Anemia - unspecified HTN HDL OA Gait instability - Laboratory Labs: 12/01/17 10:51 11/30/17 04:15 - Radiology Radiology: Date of Exam: 11/28/17 Indication: abdominal pain PROCEDURE: CT abdomen pelvis w con: Findings: Large posterior diaphragmatic defect containing stomach and portions of the colon and pancreas. The liver is unremarkable. Gallbladder is distended without obvious stone disease or inflammation. The spleen and pancreas are otherwise normal. The adrenal glands are normal. Bilateral renal cysts. No abdominal or pelvic adenopathy. Metallic artifact from right hip replacement. Bladder is grossly normal. Uterus is absent. Extensive sigmoid diverticulosis without evidence of diverticulitis the splenic flexure of the colon is not entirely included in the [id number]-kq-swqo. There is a single prominent loop of mildly fecalized small bowel in the left lower abdomen and pelvis measuring 3.1 cm in diameter on axial image #62. This has some slight surrounding mesenteric edema. The remaining small bowel is decompressed. Bone windows show no acute findings. Impression: Single mildly prominent loop of small bowel in the left lower abdomen and pelvis could be due to a focal ileus, enteritis or developing partial small bowel obstruction. Date of Exam: 12/01/17 Indication: f-u partial SBO PROCEDURE: XR abdomen 1V: Findings: Bowel gas pattern is nonobstructive and nonspecific. No abnormally dilated gas filled loops of small or large bowel appreciated. Bony structures are unchanged. Right lung bases clear. Large diaphragmatic defect noted. Impression: Nonobstructive nonspecific bowel gas pattern. Date of Exam: 11/29/17 Indication: sbo PROCEDURE: XR abdomen 2V: Findings: The visualized lung bases show the left-sided diaphragmatic hernia. There is no free air on the upright view. The bowel gas pattern is nonobstructive and nonspecific. Gas is seen in nondilated small and large bowel to the level of the rectum. Moderate stool is seen throughout the colon. Small amount of residual contrast in the renal collecting systems. The prominent loop of small bowel seen by CT is not visible radiographically. Impression: Nonobstructive nonspecific bowel gas pattern. History of Present Illness HPI: 77 y/o female presents to ED secondary to progressively increasing ab pain. She reports bowels are always slow and crampy-attributes to HH with part of colon above diaphragm. Will utilize medications as needed to promote bowel regularity and typically has good success. On 11/23, noticed increased ab pain post eating-cramping bloating. Stools become more slow-really decreased by Monday/Mon. On Monday, was still passing flatus so she took pericolace for help with bowel function. Appetite started to decrease as oral intake would increase her discomfort. Denies n/v. No f/c. By day of presentation, not able to even take water as would have severe increase in her pain. Pain becoming more constant. Feeling more weak due to decreased intake. No palpitations, but feeling more orthostatic. No falls or trauma. Decreasing urine output secondary to decreased intake. By evening of the , son brought her to [facility] for evaluation. WBC with elevation. CT ab/pelvis showing SBO. Admitted for further treatment. Objective Vital signs: Temperature 97.5 F 12/02/17 07:00 Pulse Rate 72 12/02/17 07:00 Respiratory Rate 16 12/02/17 07:00 Blood Pressure 154/82 H 12/02/17 07:00 Pulse Oximetry 93 12/02/17 07:00 Height/Weight/BMI: Height 1.57 m Weight 88.9 kg Body Mass Index 34.2 - Constitutional Present: no acute distress, well nourished, well developed - Routine HEENT Exam Head: Present: normocephalic, atraumatic - Routine Respiratory Exam Present: CTA bilaterally. Absent: wheezes - Routine Cardiovascular Exam Present: RRR, no murmur - Routine Abdominal Exam Present: soft, non distended, non tender - Routine Extremities Exam Present: no edema, normal capillary refill - Routine Skin Exam Present: dry, warm - Routine Neurological Exam Present: alert, oriented X3 - Routine Lymphatic Exam Lymphatic: Absent: adenopathy - Routine Psychiatric Exam Present: normal affect, cooperative Hospital Course This is a general summary of the patient's hospital course. For more details refer to the complete medical record. Hospital course: 11/28/17 Inpatient admission for treatment of SBO. IVF of NS to maintain hydration. Bowel rest secondary to SBO. Control pain/nausea. Dulcolax given on arrival to stimulate bowel function. SCD for DVT prevention. Nursing to ambulate to help preserve strength and to help with bowel function. Monitor lab. Discussed code status with patient. She requests DNR. Order written. Care to return to Dr Lopez at time of discharge from [facility]. 11/30/17 Hgb has dropped since admission 14.0-->11.2 - likely dilutional. Repeat CBC in am. Passing flatus and has smearing. Will advance diet to clear liquids. Trial of repeat dulcolax supp now. 12/01/17 Hgb stable 11.4 today. Tolerating full diet with no pain. Repeat KUB shows no obstruction. Add lactulose, repeat suppository this evening and consider enema in am. 12/02/17 Had large amt of stool yesterday and overnight. Feels "cleaned out." DC home today. Time spent with patient: greater than 35 minutes Resuscitation Status: Do Not Resuscitate Discharge Plan - Discharge Disposition Discharge Date: 12/02/17 Disposition: 01 Discharged Home, Self-Care *Condition: Stable Reason For Visit (Visit label in EMR): SBO - Discharge Medications *Discharge Medications: New PEG 3350 17gm PACKET [Miralax] 17 gm PO DAILY packet Continue Aspirin [[place] Aspirin] 81 mg PO DAILY Metoprolol Tartrate [Lopressor] 50 mg PO BIDWM Meloxicam [Mobic] 7.5 mg PO BID diphenhydrAMINE HCl [Benadryl] 25 mg PO Q4H PRN PRN Reason: Prn Orders Acetaminophen [Acetaminophen Extra Strength] 1,000 mg PO Q6H PRN PRN Reason: Pain Docusate Sodium [Colace] 100 mg PO DAILY PRN PRN Reason: Constipation Multivitamin [One Daily] 1 tab PO DAILY Wheat Dextrin [Benefiber] 1 each PO PRN PRN PRN Reason: Prn Orders Omeprazole [Prilosec] 20 mg PO DAILY Lisinopril [Prinivil] 10 mg PO DAILY - Discharge Packet/Instructions *Diet: Regular diet *Activity: As tolerated. Try to walk daily. *Pain Management/Treatment: Mobic as prescribed and Tylenol as needed. *Wound Care: n/a Additional Instructions: Start Miralax daily. You can get the big bottle of Miralax [id number]. Start with a capful daily dissolved in 8 oz of liquid. Titrate up or down depending on your bowels. Continue your fiber. If you are feeling constipated, use Milk of Magnesia as directed on bottle on an as -needed basis. *Expected Signs/Symptoms: You may have some continued loose stools today. *Notify Physician if: You have blood in your stools. You develop abdominal pain and cannot pass gas or have a bowel movement. *During Business Hours Contact: Dr. Lopez' office *After Business Hours Contact: Call hospital at [phone] and have the physician on-call paged. *Pending Lab/Results: No Pending Lab - Referrals/Follow Up *Referrals/Follow Up: Usama Lopez MD [Family Provider] - 1 Week - Patient Handouts Patient Handouts: Bowel Obstruction (GEN) - Dismissal Complete Discharge Instructions are:: Complete Physician Narrative - Narrative Physician: Jethro Gray MD Attestation Narrative: Date: 12/02/17 Time: 1340 I have independently evaluated and examined this patient. I reviewed the chart, the patient's history, and the ARCHIVIST/PA's documented findings as above. We discussed and formulated the assessment and plan as above with additions as below: Patient up to chair. Says she had several large stools overnight. Says she is ready to go home. NAD. CTAB. RRR. S/NT/ND +BS Dismiss to home. Encouraged patient to take fiber supplement more regularly.
== END 2017-12-02 12:20 | disposition home or self-care (01) | DRG 390 ==
LOC: ED 19:31 → MED 23:32 → SUATTDRO 23:32 → MED 23:40
PROVIDERS: ADMIT Hospitalist; ATTEND Hospitalist

== ENCOUNTER 2018-03-23 23:03 | Inpatient (IN) ==
--- OUTSIDE RECORDS SUMMARY | 2018-03-23 23:30 | External Medical Summary | Referral Summary ---
:1940 Author Organization [facility] [place] [address] Care Team Providers Name Role Phone Usama Lopez Primary Care Physician Encounter [facility] [id number] Date(s): 04/24/17 - 04/24/17 [facility] [place] [address] [place] Discharge Diagnosis: Essential hypertension Discharge Diagnosis: Generalized osteoarthritis (disorder) Discharge Diagnosis: Pure hypercholesterolemia (disorder) Discharge Diagnosis: Osteoporosis Discharge Diagnosis: GERD (gastroesophageal reflux disease) Discharge Disposition: 01-Home or Self Care Attending Physician: Usama Lopez MD Admitting Physician: Usama Lopez MD Vital Signs Most recent to oldest [Reference Range]: 1 Temperature Tympanic [36.6-38.1 degC] 36.7 degC (04/24/17 9:25 AM) Peripheral Pulse Rate [60-100 bpm] 84 bpm (04/24/17 9:25 AM) Respiratory Rate [14-20 br/min] 18 br/min (04/24/17 9:25 AM) Blood Pressure [90-140/60-90 mmHg] 138/88 mmHg (04/24/17 9:25 AM) Problem List Condition Effective Dates Status [...] 12/12/14 Status: Orderedlisinopril 10 mg oral tablet 10 mg 1 tabs, Oral, Daily, # 30 tabs, 0 Refill(s) Start Date: 01/19/17 Status: Orderedmeloxicam 7.5 mg oral tablet See Instructions, TAKE ONE TO TWO TABLETS BY MOUTH ONCE DAILY, # 180 tabs, eRx: [id number] Start Date: 03/13/17 Status: Orderedmetoprolol tartrate 50 mg oral tablet 50 mg 1 tabs, Oral, BID, 0 Refill(s) Start Date: 10/10/16 Status: OrderedMultivitamins oral tablet 1 tabs, Oral, Daily Start Date: 06/13/14 Status: Orderedomeprazole 20 mg oral delayed release capsule See Instructions, TAKE ONE CAPSULE BY MOUTH ONCE DAILY BEFORE A MEAL, # 90 caps, 3 Refill(s), Pharmacy: [id number], TAKE ONE CAPSULE [...] Recorded 1Result Comment: [07/20/2015] VIA PT ORAL [id number] Comment: [10/10/2016] hospital record Procedures Procedure Date Related Diagnosis Body Site Open reduction of fracture of femur with 09/27/16 internal fixation1 Colonoscopy2 11/05/14 Esophagogastroduodenoscopy3 11/05/14 Mammogram 06/18/14 Cataract extraction 2006 Hernia repair Hysterectomy 1s/p R femur [id number] diverticulosis likely the cause of rectal mesltbaf0Msvkbuhhxdnqw stomach Social History Social History Type Response Smoking Status Never smoker Assessment and Plan Extracted from: Title: Office Visit Note Author: Usama Lopez MD Date: 04/24/17 Assessment/Plan 1.Essential hypertension Blood pressure appears to be adequately controlled. She's checking at home and that's been normal there as well. No change in current treatment is recommended. Follow-up in 3 months withlab at that time. Ordered: Office Visit Level 4 Est 06242 2.GERD (gastroesophageal reflux disease) Chronic stable no change in current treatment. Ordered: Office Visit Level 4 Est 48854 3.Generalized osteoarthritis (disorder) I think her ankle pain is likely arthritic in nature. It seems to be doing better no further treatment at this time at the pain worsens we may want to consider doing an x-ray. She's thinking ab out going [facility] and see if they canmake some inserts her have some shoes that would fit her better. Ordered: Office Visit Level 4 Est 71069 4.Osteoporosis Chronic stable no change in current treatment. Ordered: Office Visit Level 4 Est 37839 5.Pure hypercholesterolemia (disorder) Previous laboratory studies reviewed no change in current treatment recommended. Ordered: Office Visit Level 4 Est 69300
--- OUTSIDE RECORDS SUMMARY | 2018-03-23 23:30 | External Medical Summary | Referral Summary ---
:1940 Author Organization [facility] [address] [place] [address] Care Team Providers Name Role Phone Usama Lopez Primary Care Physician Encounter [facility] [id number] Date(s): 07/25/17 - 07/25/17 [facility] [place] [address] [place] Discharge Diagnosis: Urinary frequency Discharge Diagnosis: Essential hypertension (disorder) Discharge Diagnosis: Pure hypercholesterolemia (disorder) Discharge Diagnosis: GERD Discharge Diagnosis: Generalized osteoarthritis (disorder) Discharge Disposition: 01-Home or Self Care Attending Physician: Usama Lopez MD Admitting Physician: Usama Lopez MD Vital Signs Most recent to oldest [Reference Range]: 1 Temperature Tympanic [36.6-38.1 degC] 36.6 degC (07/25/17 10:01 AM) Peripheral Pulse Rate [60-100 bpm] 76 bpm (07/25/17 10:01 AM) Respiratory Rate [14-20 br/min] 20 br/min (07/25/17 10:01 AM) Blood Pressure [90-140/60-90 mmHg] 164/90 mmHg *HI* (07/25/17 10:01 AM) Problem List Condition Effective Dates [...] Daily, 0 Refill(s) Start Date: 12/12/14 Status: OrderedCipro 250 mg oral tablet 250 mg 1 tabs, Oral, q12hr, X 7 days, # 14 tabs, 0 Refill(s), Pharmacy: [facility] [id number], 1 tabs Oral q12hr,x7 days Start Date: 07/25/17 Stop Date: 08/01/17 Status: Orderedlisinopril 10 mg oral tablet 10 mg 1 tabs, Oral, Daily, # 30 tabs, 0 Refill(s) Start Date: 01/19/17 Status: Orderedmeloxicam 7.5 mg oral tablet See Instructions, TAKE ONE TO TWO TABLETS BY MOUTH ONCE DAILY, # 180 tabs, eRx: [facility] Start Date: 07/10/17 Status: Orderedmetoprolol tartrate 50 mg oral tablet 50 mg 1 tabs, Oral, BID, 0 Refill(s) Start Date: 10/10/16 Status: OrderedMultivitamins oral tablet 1 tabs, Oral, Daily Start Date: 06/13/14 Status: Orderedomeprazole 20 mg oral delayed release capsule See Instructions, TAKE ONE CAPSULE BY MOUTH ONCE DAILY BEFORE A MEAL, # 90 caps , eRx: [facility] Start Date: 07/10/17 Status: OrderedPeri-Colace 1 tabs, Oral, Bedtime (once a day), Constipation, 0 Refill(s) Start Date: 11/11/14 Status: Ordered Results Chemistry Most recent to oldest [Reference Range]: 1 Sodium Lvl [135-144 mEq/L] 141 mEq/L (07/25/17 9:50 AM) Potassium Lvl [3.5-5.2 mEq/L] 4.5 mEq/L (07/25/17 9:50 AM) Chloride [99-111 mEq/L] 108 mEq/L (07/25/17 9:50 AM) CO2 [22-31 mEq/L] 23 mEq/L (07/25/17 9:50 AM) AGAP [3-20 mEq/L] 10 mEq/L (07/25/17 9:50 AM) BUN [10-20 mg/dL] 27 mg/dL *HI* (07/25/17 9:50 AM) Glucose Lvl [70-99 mg/dL] 87 mg/dL (07/25/17 9:50 AM) Creatinine Lvl [0.57-1.11 mg/dL] 1.13 mg/dL *HI* (07/25/17 9:50 AM) eGFR [>60 mL/min] 46 mL/min 1 *ABN* (07/25/17 9:50 AM) Calcium Lvl [8.4-10.2 mg/dL] 10.0 mg/dL (07/25/17 9:50 AM) Albumin Lvl [3.4-4.8 gm/dL] 4.0 gm/dL (07/25/17 9:50 AM) Total Protein [6.0-7.6 gm/dL] 6.8 gm/dL (07/25/17 9:50 AM) Globulin [1.8-4.0 gm/dL] 2.8 gm/dL (07/25/17 9:50 AM) ALT [0-55 U/L] 10 U/L (07/25/17 9:50 AM) AST [5-34 U/L] 13 U/L (07/25/17 9:50 AM) Alk Phos [40-150 U/L] 92 U/L (07/25/17 9:50 AM) Bili Total [0.2-1.2 mg/dL] 0.3 mg/dL (07/25/17 9:50 AM) 1Result Comment: Multiply eGFR results by 1.21 for race.Urinalysis Most recent to oldest [Reference Range]: 1 UA Color Yellow (07/25/17 10:27 AM) UA Appear Clear (07/25/17 10:27 AM) UA pH [5.0-8.0] 5.0 (07/25/17 10:27 AM) UA Leuk Est [Negative] Pos 1+ *ABN* (07/25/17 10:27 AM) UA Nitrite [Negative] Negative (07/25/17 10:27 AM) UA Protein [Negative] Negative (07/25/17 10:27 AM) UA Glucose [Negative] Negative (07/25/17 10:27 AM) UA Ketones [Negative] Negative (07/25/17 10:27 AM) UA Urobilinogen [<=1.0 mg/dL] 0.2 mg/dL (07/25/17 10:27 AM) UA Bili [Negative] Negative (07/25/17 10:27 AM) UA Blood [Negative] Negative (07/25/17 10:27 AM) UA Spec Grav [1.003-1.030] 1.010 (07/25/17 10:27 AM) Type Cl Catch (07/25/17 10:27 AM) UA WBC [0-4] 10-20 *ABN* (07/25/17 10:27 AM) UA RBC [0-2] 0-2 (07/25/17 10:27 AM) Epithelial Cells 0-2 (07/25/17 10:27 AM) UA Bacteria Occasional *ABN* (07/25/17 10:27 AM) Immunizations Given and Recorded Vaccine Date Status Refusal Reason pneumococcal 23-polyvalent vaccine1 10/01/16 Recorded pneumococcal 23-polyvalent vaccine 10/30/03 Recorded influenza virus vaccine, inactivated 07/06/16 Given influenza virus vaccine, inactivated2 07/20/15 Recorded pneumococcal 13-valent conjugate vaccine 07/02/15 Recorded tetanus/diphth/pertuss (Tdap) adult/adol 09/10/14 Given influenza virus vaccine, live 07/14/14 Recorded influenza virus vaccine, live 07/11/13 Given influenza virus vaccine, live 08/06/12 Given hepatitis B pediatric vaccine 12/28/88 Given hepatitis B pediatric vaccine 07/30/88 Given hepatitis B pediatric vaccine 06/30/88 Given 1Result Comment: [10/10/2016] hospital [id number] Comment: [07/20/2015] VIA PT ORAL REPORT Procedures Procedure Date Related Diagnosis Body Site Open reduction of fracture of femur with 09/27/16 internal fixation1 Colonoscopy2 11/05/14 Esophagogastroduodenoscopy3 11/05/14 Mammogram 06/18/14 Cataract extraction 2006 Hernia repair Hysterectomy 1s/p R femur [id number] diverticulosis likely the cause of rectal [id number] stomach Social History Social History Type Response Smoking Status Never smoker entered on: 06/13/14 Assessment and Plan Extracted from: Title: Office Visit Note Author: Usama Lopez MD Date: 07/25/17 1.Urinary frequency We will check a UA today and see what that shows. Ordered: Office Visit Level 4 Est 88630 Urinalysis with Culture if Indicated 2.Essential hypertension (disorder) Blood pressureis well-controlled at home a little high here no change in current treatment is recommended. She did have lab work drawn today. We'll see what that shows. Follow-up in 3 months. Report card reviewed and provided today. Ordered: Office Visit Level 4 Est 97001 3.GERD Chronic stable under current treatment no changes recommended. Ordered: Office Visit Level 4 Est 34466 4.Generalized osteoarthritis (disorder) Chronic and stable with current treatment no changes recommended. Ordered: Office Visit Level 4 Est 70079 5.Pure hypercholesterolemia (disorder) Previous laboratory studies reviewed no changes in current treatment. Ordered: Office Visit Level 4 Est 75113
--- OUTSIDE RECORDS SUMMARY | 2018-03-23 23:30 | External Medical Summary | Referral Summary ---
:1940 Author Organization [facility] [place] [address] Care Team Providers Name Role Phone Usama Lopez Primary Care Physician Encounter [facility] Date(s): 01/19/17 - 01/19/17 [facility] [place] [address]- Discharge Diagnosis: Pure hypercholesterolemia (disorder) Discharge Diagnosis: GERD (gastroesophageal reflux disease) Discharge Diagnosis: Essential hypertension Discharge Diagnosis: Generalized osteoarthritis (disorder) Discharge Diagnosis: Osteoporosis Discharge Disposition: 01-Home or Self Care Attending Physician: Usama Lopez MD Admitting Physician: Usama Lopez MD Vital Signs Most recent to oldest [Reference Range]: 1 Temperature Tympanic [36.6-38.1 degC] 37.0 degC (01/19/17 8:38 AM) Peripheral Pulse Rate [60-100 bpm] 85 bpm (01/19/17 8:38 AM) Blood Pressure [90-140/60-90 mmHg] 158/98 mmHg *HI* (01/19/17 8:38 AM) SpO2 95 % (01/19/17 8:38 AM) Problem List Condition Effective Dates Status [...] DAILY, # 180 tabs, 2 Refill(s), Pharmacy: [id number], TAKE ONE TO TWO [...] MEAL, # 90 caps, 3 Refill(s), Pharmacy: [id number], TAKE ONE CAPSULE BY MOUTH ONCE DAILY BEFORE A MEAL Start Date: 07/06/16 Status: OrderedPeri-Colace 1 tabs, Oral, Bedtime (once a day), Constipation, 0 Refill(s) Start Date: 11/11/14 Status: Orderedpolyethylene glycol 3350 oral powder for reconstitution 17 g, Oral, Daily, prn constipation, 0 Refill(s) Start Date: 10/10/16 Status: Ordered [...] Recorded 1Result Comment: [07/20/2015] VIA PT ORAL [id number] Comment: [10/10/2016] hospital record Procedures Procedure Date Related Diagnosis Body Site Open reduction of fracture of femur with 09/27/16 internal fixation1 Colonoscopy2 11/05/14 Esophagogastroduodenoscopy3 11/05/14 Mammogram 06/18/14 Cataract extraction 2005 Hernia repair Hysterectomy 1s/p R femur [id number] diverticulosis likely the cause of rectal zslvwobs2Mnwncvijmoipx stomach Social History Social History Type Response Smoking Status Never smoker Assessment and Plan Extracted from: Title: Office Visit Note Author: Usama Lopez MD Date: 01/19/17 Assessment/Plan 1.Essential hypertension Blood pressure is high here but controlled at home she has not taken her morning medications at this point. She did have laboratory studies drawn this morning will review those. For the time be ing no change in current therapy. Follow-up in 3 months. Ordered: Office Visit Level 4 Est 68911 2.GERD (gastroesophageal reflux disease) Chronic and stable no change in current treatment. Ordered: Office Visit Level 4 Est 77871 3.Generalized osteoarthritis (disorder) Chronic relatively stable no change in current treatment. She has recovered from her hip surgery well. Ordered: Office Visit Level 4 Est 04997 4.Osteoporosis Chronic stable no change in current treatment. Ordered: Office Visit Level 4 Est 33784 5.Pure hypercholesterolemia (disorder) Continue current treatment without change. Laboratory studies are pending we'll let her know if we need to make any changes. Ordered: Office Visit Level 4 Est 05681
[2018-03-23] MEDS ORDERED: NS 1,000 ML IV ONE (23:44)
[2018-03-23] MEDS ORDERED: MORPHINE SULFATE 4mg INJECTION IVP ONE (23:44)
[2018-03-23] MEDS ORDERED: PROCHLORPERAZINE 10 MG/2 ML INJECTION IVP ONE (23:44)
--- NOTE | 2018-03-23 23:52 | Emergency Department Report ---
Abdominal Pain HPI - General Chief Complaint: Abdominal Pain Stated Complaint: abd pain radiates to legs Time Seen by Provider: 03/23/18 23:22 Source: patient, RN notes reviewed, old records reviewed Mode of arrival: ambulatory Limitations: no limitations - History of Present Illness HPI narrative: 77yo woman presents to the ER with diffuse abdominal pain. Pt has a known diaphragmatic hernia that has led to bowel obstruction twice before (with herniation of stomach and left semicolon). Pt has been evaluated by Dr. Godfrey previously and counseled to not have surgery unless absolutely necessary. When pt was admitted previously, the obstruction resolved spontaneously. Tonight, pt has severe, epigastric abdominal that radiates to the rest of her abdomen. Any food or drink worsens pts pain. Pt has not been able to eat or drink today. Pt was able to take tylenol around 1700, but had no relief. MD complaint: abdominal pain Onset (ago): hour(s) Consistency: constant Location: epigastric Severity: similar to previous episodes Severity scale (1-10): 8 Quality: cramping, stabbing, sharp Radiation: LUQ, RUQ, LLQ, RLQ Migration to: no migration Relieving factors: nothing Exacerbating factors: eating, movement, other (drinking) Context: history of similar episodes Associated symptoms: nausea - Related Data Home Medications Medication Instructions Recorded Confirmed Aspirin [[place] Aspirin] 81 mg PO DAILY 09/17/17 03/23/18 Meloxicam [Mobic] 7.5 mg PO BID 09/17/17 03/23/18 Metoprolol Tartrate [Lopressor] 50 mg PO BIDWM 09/17/17 03/23/18 Wheat Dextrin [Benefiber] 1 each PO PRN PRN 09/17/17 03/23/18 diphenhydrAMINE HCl [Benadryl] 25 mg PO Q4H PRN 09/17/17 03/23/18 Acetaminophen [Acetaminophen Extra 1,000 mg PO Q6H PRN 11/28/17 03/23/18 Strength] Docusate Sodium [Colace] 100 mg PO DAILY PRN 11/28/17 03/23/18 Lisinopril [Prinivil] 10 mg PO DAILY 11/28/17 03/23/18 Multivitamin [One Daily] 1 tab PO DAILY 11/28/17 03/23/18 Omeprazole [Prilosec] 20 mg PO DAILY 11/28/17 03/23/18 Previous Rx's Medication Instructions Recorded PEG 3350 17gm PACKET [Miralax] 17 gm PO DAILY packet 12/02/17 Allergies Allergy/AdvReac Type Severity Reaction Status Date / Time No Known Allergies Allergy Verified 11/28/17 19:58 Review of Systems All systems: reviewed and negative except as stated Gastrointestinal: Reports: as per HPI, abdominal pain, nausea. Denies: vomiting , diarrhea, constipation, hematemesis, melena, hematochezia [facility] Patient Stated Medical History Seizures Yes: one episode while in the hospital with GI bleed Transient Ischemic Attacks ( Yes: DOUBLE VISION FOR ONE HOUR 2015 TIA) Cataracts Yes: REMOVED BILATERAL Other HEENT Yes: wears glasses Cardiac Arrhythmia Yes: WITH FRACTURED HIP IN 2015 Hypertension Yes Other GI Yes: diaphragmatic hernia Blood Transfusions Yes: 2014 with GI bleed Clinic Medical History (Last Reviewed 09/29/17 @ 09:36 by JURGEN Le) GERD (gastroesophageal reflux disease) (Chronic Medical) Constipation (Chronic Medical) HTN (hypertension) (Chronic Medical) Osteoarthritis (Chronic Medical) Medical History Updates: On echocardiogram read by Dr. Jeong: 1. Normal LV systolic function with ejection fraction of 55%. 2. Mitral annulus calcification with trace of mitral regurgitation. 3. Aortic sclerosis with moderate aortic insufficiency. 4. Moderate tricuspid regurgitation with moderate to severe pulmonary hypertension with estimated. pulmonary artery systolic pressure of 65. Surgical History: -R hip fx Total hip-09/25/16;. - hysterectomy;. -A&P repair- 1993. -EGD normal 11/05/2014. -Colonoscopy, diverticula likely cause of bleeding 11/05/2014. Family History: Family History (Last Reviewed 09/29/17 @ 09:36 by JURGEN Le) Mother Dementia Arthritis Father Throat cancer Heart failure Family History Updates: mother of likely multiinfarct dementia, father from CAD and laryngeal cancer in his 70s - Social History Smoking status: Never smoker Substance use type: does not use Alcohol intake frequency: does not drink Housing: house Household members: none Current occupational status: retired Physical Exam - Limitations Limitations: no limitations - General General appearance: alert, in no apparent distress, obese - Normal Exams: Head:: Normocephalic without trauma Eyes:: Pupils are PERRLA w/ EOMI, No scleral icterus, irritation, or foreign bodies noted ENMT:: No facial trauma, nasal exudates, pharyngeal erythema, or exudates are noted Neck:: Full range of motion, without adenopathy Lymphatic:: No lymphadenopathy Musculoskeletal:: No tenderness, or deformity noted Integumentary:: No rashes, hives, or bruising noted Neurological:: Patient is alert, and oriented Psychiatric:: Patient exhibits, appropriate attention - Chest Chest inspection: Present: normal inspection, symmetric chest wall rise. Absent : tenderness, rash - Respiratory Respiratory exam: Present: normal lung sounds bilaterally. Absent: respiratory distress, wheezes, stridor, prolonged expiratory phase, crackles - Cardiovascular Cardiovascular exam: Present: regular rate, normal rhythm, normal heart sounds. Absent: rubs, gallop, clicks - Abdominal Exam Abdominal exam: Present: soft, tenderness, normal bowel sounds. Absent: distention, guarding, rebound, organomegaly, heel tap sign, Morgan's sign, Rovsing's sign, tenderness at McBurney's Point, hernia Abdominal tenderness: Present: diffuse, moderate Course - Consultations Consultation #1: Dave Telemed: Will admit for obs for bowel obstruction. Time: 01:30 Vital Signs Temperature 98.3 F 03/23/18 23:05 Pulse Rate 88 03/23/18 23:05 Respiratory Rate 18 03/23/18 23:05 Blood Pressure 128/82 03/23/18 23:05 Pulse Oximetry 94 03/23/18 23:05 Temperature 98.3 F 03/23/18 23:05 Pulse Rate 88 03/23/18 23:05 Respiratory Rate 18 03/23/18 23:05 Blood Pressure 128/82 03/23/18 23:05 Pulse Oximetry 94 03/23/18 23:05 Abdominal Pain - MDM Narrative Medical decision making narrative: Pt with recurrent bowel obstruction due to known hiatus hernia. Discussed with hospitalist who will admit for obs. - Differential Diagnosis Differential diagnosis: Likely: abdominal pain, acute appendicitis, constipation , diverticulitis, gastroenteritis, small bowel obstruction - Medical Records Attestation: I reviewed the patient's medical records. - Lab Data Attestation: I reviewed the patient's lab results. Result diagrams: 03/23/18 23:58 03/23/18 23:58 - Radiology Data Attestation: I reviewed the patient's radiology results. CT Abd/Pelv: IMPRESSION: 1. Very large hiatal hernia similar to prior exam. Contains portions of large bowel, small bowel, pancreas, and stomach. No evidence for incarceration. 2. Gallbladder distended without stones or wall thickening. 3. Fluid distention small bowel in midabdomen with subtle adjacent mesenteric edema and mesenteric lymph nodes similar to prior exam. As before segmental ileus versus partial small bowel obstruction with associated enteritis is in the differential. No pneumatosis intestinalis. Disposition Clinical Impression: Hiatus hernia with obstruction Disposition: To [facility] Print Language: Lithuanian Condition: Stable Prescriptions: No Action Aspirin [[place] Aspirin] 81 mg PO DAILY Metoprolol Tartrate [Lopressor] 50 mg PO BIDWM Meloxicam [Mobic] 7.5 mg PO BID diphenhydrAMINE HCl [Benadryl] 25 mg PO Q4H PRN PRN Reason: Prn Orders Acetaminophen [Acetaminophen Extra Strength] 1,000 mg PO Q6H PRN PRN Reason: Pain Docusate Sodium [Colace] 100 mg PO DAILY PRN PRN Reason: Constipation Multivitamin [One Daily] 1 tab PO DAILY PEG 3350 17gm PACKET [Miralax] 17 gm PO DAILY packet Wheat Dextrin [Benefiber] 1 each PO PRN PRN PRN Reason: Prn Orders Omeprazole [Prilosec] 20 mg PO DAILY Lisinopril [Prinivil] 10 mg PO DAILY Referrals: Usama Lopez MD [Primary Care Provider] - Time of Disposition: 01:43 - Seen By: physician
[2018-03-23] MEDS: SALINE FLUSH 10ml SYRINGE IVF PRN (23:55)
[2018-03-24] MEDS ORDERED: SALINE FLUSH 10ml SYRINGE ONE (00:18)
[2018-03-24] MEDS ORDERED: IOHEXOL 300mg/ml 100ml INJECTION ONE (00:18)
[2018-03-24] MEDS ORDERED: MORPHINE SULFATE 4mg INJECTION IVP PRN (01:59)
[2018-03-24] MEDS ORDERED: NS 1,000 ML IV SCH (02:00)
[2018-03-24 02:22] VITALS: BMI 34.2
--- NOTE | 2018-03-24 02:47 | History & Physical Report ---
History of Present Illness Date: 03/24/18 Chief complaint: abdominal pain HPI: 77 yo F with PMH of large hiatal hernia presented to the ED with diffuse abdominal pain. She reports the pain started on night and it usually resolves with in an hour, but this time it did not. She does have PMH of SBO in the past secondary to this. She has been seen by Dr. Godfrey and counseled not to have surgery unless absolutely necessary. SBO's in the past have resolved spontaneously. She reports her pain starts in her stomach and then goes down and radiates to the rest of her stomach. She has not been able to eat or drink anything and reports large amounts of watery stools. She reports these symptoms are very similar to her SBO's in the past. She was admitted for IVF and pain control. Review of Systems All systems PM: 10-point ROS was reviewed, no additional remarkable complaints except Past Medical History Medical History: Medical History (Last Reviewed 09/29/17 @ 09:36 by JURGEN Le) GERD (gastroesophageal reflux disease) (Chronic) Constipation (Chronic) HTN (hypertension) (Chronic) Osteoarthritis (Chronic) Medical History Updates: On echocardiogram read by Dr. Jeong: 1. Normal LV systolic function with ejection fraction of 55%. 2. Mitral annulus calcification with trace of mitral regurgitation. 3. Aortic sclerosis with moderate aortic insufficiency. 4. Moderate tricuspid regurgitation with moderate to severe pulmonary hypertension with estimated. pulmonary artery systolic pressure of 65. Surgical History: -R hip fx Total hip-09/25/16;. - hysterectomy;. -A&P repair- 1993. -EGD normal 11/05/2014. -Colonoscopy, diverticula likely cause of bleeding 11/05/2014. Family History: Family History (Last Reviewed 09/29/17 @ 09:36 by JURGEN Le) Mother Dementia Arthritis Father Throat cancer Heart failure Family History: As Above - Social History Smoking status: Never smoker Medications Home Medications Medication Instructions Recorded Confirmed Type Aspirin [[place] Aspirin] 81 mg PO DAILY 09/17/17 03/23/18 History Meloxicam [Mobic] 7.5 mg PO BID 09/17/17 03/23/18 History Metoprolol Tartrate [Lopressor] 50 mg PO BIDWM 09/17/17 03/23/18 History Wheat Dextrin [Benefiber] 1 each PO PRN PRN 09/17/17 03/23/18 History diphenhydrAMINE HCl [Benadryl] 25 mg PO Q4H PRN 09/17/17 03/23/18 History Acetaminophen [Acetaminophen Extra 1,000 mg PO Q6H PRN 11/28/17 03/23/18 History Strength] Docusate Sodium [Colace] 100 mg PO DAILY PRN 11/28/17 03/23/18 History Lisinopril [Prinivil] 10 mg PO DAILY 11/28/17 03/23/18 History Multivitamin [One Daily] 1 tab PO DAILY 11/28/17 03/23/18 History Omeprazole [Prilosec] 20 mg PO DAILY 11/28/17 03/23/18 History PEG 3350 17gm PACKET [Miralax] 17 gm PO DAILY packet 12/02/17 03/23/18 Rx Allergies Allergy/AdvReac Type Severity Reaction Status Date / Time No Known Allergies Allergy Verified 03/24/18 02:35 Exam Vital Signs: Temperature 95.7 F L 03/24/18 02:11 Pulse Rate 80 03/24/18 02:11 Respiratory Rate 18 03/24/18 02:11 Blood Pressure 134/66 03/24/18 02:11 Pulse Oximetry 94 03/24/18 02:11 Height/Weight/BMI: Height 1.57 m Weight 84.8 kg Body Mass Index 34.2 - Constitutional Present: well nourished, well developed - Routine Respiratory Exam Present: CTA bilaterally. Absent: wheezes - Routine Cardiovascular Exam Present: RRR. Absent: murmur - Routine Abdominal Exam Present: soft, normoactive bowel sounds, non distended. Absent: tenderness - Routine Extremities Exam Present: normal capillary refill - Routine Skin Exam Present: dry, warm - Routine Neurological Exam Present: alert, oriented X3, CN II-XII intact Results - Labs CBC & Chem 7: 03/23/18 23:58 03/23/18 23:58 Assessment and Plan (1) Partial small bowel obstruction Current visit: No Status: Acute (2) Hiatus hernia with obstruction Current visit: Yes Status: Acute (3) Diarrhea Current visit: No Status: Acute (4) Dehydration Current visit: No Status: Acute Assessment and Plan: admit for supportive care. IVF NS at 100cc//hr overnight. Morphine for pain control. NPO except for sips and chips. Monitor UOP and electrolytes. DVT Prophylaxis: SCD's Resuscitation Status: Full Code - Physician Narrative Narrative: Date: 03/24/18 Time: 0240 Hospital Course Summary Disclaimer: The visit summary below is not to be considered part of the above Progress Note.
[2018-03-24] MEDS ORDERED: ONDANSETRON 4 MG/2 ML INJECTION IVP PRN (09:58)
[2018-03-24] MEDS ORDERED: METOCLOPRAMIDE 10mg/2ml INJECTION IVP PRN (09:58)
[2018-03-24] MEDS: SALINE FLUSH 10ml SYRINGE IVF PRN (11:09)
[2018-03-24] MEDS: PANTOPRAZOLE 40 MG INJECTION IVP SCH (11:09)
[2018-03-24] MEDS: LR 1,000 ML IV SCH ×2 (11:10→21:24)
[2018-03-24] MEDS: BISACODYL 10 MG SUPPOSITORY RECTALLY SCH ×3 (11:10→21:22)
--- NOTE | 2018-03-24 13:00 | Consultation ---
DATE OF CONSULTATION 03/24/2018 HISTORY OF PRESENT ILLNESS This patient 77 years old. She is known to have a very large diaphragmatic hiatal hernia with a large posterior diaphragmatic defect. This had been present for many years. The patient has elected in the past not to proceed with elective repair of the hernia. The patient has learned over the years that she could not eat a large amount at any one single setting. The patient has learned to eat small frequent meals throughout the day and into the evening. The patient states that it is not unusual for her to have some abdominal pain after eating. This is usually located at the epigastric region or the mid abdomen. Most of these episodes resolve after an hour or two. The patient just stops eating and drinking when this occurs and the pain usually goes away in an hour or two. She does not seek medical treatment at these times. The patient states that she does seek medical treatment if her pain lasts for 24 hours without going away. The patient did have an episode where the abdominal pain persisted for a longer period of time on 11/28/2017. The patient was admitted to [facility] at that time. She was seen in consultation by Dr. Godfrey on 2017. It was thought at this time that the patient had a partial small bowel obstruction associated with the large hiatal hernia. This was already improving at the time the patient was seen by Dr. Godfrey. The patient was treated with nonoperative treatment with bowel rest, laxatives, suppositories and intravenous fluids. She did not have a nasogastric tube inserted. The patient has never needed to have an operation for treatment of any of these partial small bowel obstructions. The partial small-bowel obstruction did resolve with nonoperative treatment during the November 2017 hospitalization. The patient has continued to have some intermittent episodes of abdominal pain which last for an hour or two and then go away since November 2017. She did experience the onset of abdominal pain during the night of 03/22/2018. This pain did persist throughout the day on 03/23/2018. The patient was not able to eat anything during this time. She was not able to take any of her pills. She was only able to drink a very small amount of water during this time. After observing the pain throughout the day on 03/23/2018 the patient did decide to come into the emergency room at about 11:30 p.m. on 03/23/2018 for evaluation of the pain. The patient did have a CT scan of the abdomen and pelvis performed on 2017 at the time of emergency room evaluation. This shows a very large hiatal hernia containing transverse colon, small bowel, a portion of the pancreas and the stomach. This appearance is similar to the appearance on previous CT scans. This CT scan also showed some fluid distention of small bowel with scattered air fluid levels particularly at the left abdomen. There was some adjacent mesenteric edema. Again, the appearance was similar to the appearance on previous CT scans. The radiologist thought that the patient had a very large hiatal hernia similar to the appearance on previous CT scans. This contained portions of the large bowel, small bowel, pancreas and stomach. There was no evidence of incarceration of the hernia. There were findings consistent with a partial small-bowel obstruction. There was no pneumatosis intestinalis. The patient was admitted to [facility] from the emergency room on 03/24/2018. The patient states her abdominal pain is less than it was at the time of admission to the hospital. She has been passing some flatus. She is beginning to feel better. The patient has been treated with bowel rest since admission to the hospital. She has had a suppository. She has been kept n.p.o. She does not have an NG tube. PHYSICAL EXAMINATION VITAL SIGNS: Temperature is 97.2 degrees Fahrenheit oral. Pulse is 85. Respiratory rate is 14. Blood pressure is 120/47. Oxygen saturation is 93% on room air. ABDOMEN: The abdomen is soft and nontender and nondistended at this time. LABORATORY White blood cell count was 12,100 at 2358 hours on 03/23/2018. Hemoglobin was 13.9. Hematocrit was 42.3. Serum sodium is 140 this morning. Serum potassium is 4. IMAGING The patient did have a CT scan of the abdomen and pelvis performed early in the morning of 03/24/2018. This shows a very large hiatal hernia which contains portions of the large bowel, small bowel, pancreas and stomach. There is no evidence of incarceration. The appearance is similar to the appearance of previous CT scans. The CT scan also shows some fluid distention of the small bowel at the mid abdomen with an appearance similar to previous CT scan examinations. Findings would be consistent with partial small-bowel obstruction. There was no pneumatosis intestinalis. IMPRESSION 1. Very large hiatal hernia containing portions of the large bowel, small bowel , pancreas and stomach. 2. Probable recurrent partial small-bowel obstruction which may be associated with the very large hiatal hernia. RECOMMENDATION Trial of nonoperative treatment which would include bowel rest, intravenous fluids, analgesics, antiemetics and nasogastric tube decompression of the upper gastrointestinal tract. The patient could have some enemas or suppositories. The partial small-bowel obstruction has resolved in the past without a nasogastric tube. I would withhold any operative exploration of the patient at this time and continue with the trial of nonoperative treatment. KUB and upright abdominal x-rays could be performed tomorrow morning to monitor response to treatment. MTDD
[2018-03-25] MEDS: PANTOPRAZOLE 40 MG INJECTION IVP SCH ×2 (06:20→08:04)
[2018-03-25] MEDS: LR 1,000 ML IV SCH ×2 (06:21→18:22)
--- NOTE | 2018-03-25 10:27 | CT Scan Report ---
Indication: H/o diaphragmatic hernia; similar sx PROCEDURE: CT abdomen pelvis w con: Encounter: Initial Comparison: November 28, 2017 Technique: Axial CT images were performed through the abdomen and pelvis after the administration of intravenous contrast. Coronal and sagittal two-dimensional reformats. Automated Exposure Control and Iterative Reconstruction dose reducing techniques were utilized. Contrast: Omnipaque 300 100 mL Findings: Lung bases are grossly clear. 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 The spleen is unremarkable. The liver and gallbladder are grossly normal. No pancreatic masses. The adrenal glands are normal. Kidneys are stable. No abdominal or pelvic lymphadenopathy. A tracker artifact from right hip replacement. Fat-containing left inguinal hernia. Sigmoid diverticulosis without evidence of acute diverticulitis. Prominent small bowel loops in the central abdomen with a transition zone in the left lower quadrant to decompressed distal bowel. Bowel loops measure up to 3 cm in diameter. Bone windows show no acute findings. Impression: Evidence of a moderate partial small bowel obstruction in the left lower quadrant of the abdomen, similar to the prior exam. There is a preliminary report by [employer]. .
[2018-03-25] MEDS: BISACODYL 10 MG SUPPOSITORY RECTALLY SCH ×2 (10:35→15:21)
--- NOTE | 2018-03-25 11:07 | XRay Report ---
Indication: small bowel obstruction PROCEDURE: XR abdomen 2V: Encounter: Initial Comparison: CT abdomen and pelvis dated March 23, 2018 Findings: The bowel gas pattern is nonobstructive and nonspecific radiographically. Gas is seen distally to the level of the rectum. No abnormally dilated gas-filled small bowel appreciated. Left-sided diaphragmatic defect is again noted with stomach and bowel herniated into the left chest. No free air identified. Bony structures are unchanged. Moderate stool in the colon. Impression: Radiographically nonobstructive bowel gas pattern. .
--- NOTE | 2018-03-25 11:24 | Progress Note ---
- Date 03/25/18 Subjective: Pt reports she's feeling much better, no abd pain since yesterday, no n/v/d, f/c , cp or sob. Pt is still NPO. Objective Vital signs: Temperature 96.5 F L 03/25/18 08:00 Pulse Rate 84 03/25/18 08:00 Respiratory Rate 20 03/25/18 08:00 Blood Pressure 144/65 H 03/25/18 08:00 Pulse Oximetry 93 03/25/18 08:00 Height/Weight/BMI: Weight 85.6 kg - Constitutional Present: no acute distress - Routine HEENT Exam Head: Present: normocephalic, atraumatic Eye: Present: EOMI, PERRL ENT: Present: mucous membranes moist - Routine Respiratory Exam Present: CTA bilaterally. Absent: rales, wheezes - Routine Cardiovascular Exam Present: RRR, no murmur - Routine Abdominal Exam Present: soft, non distended, non tender - Routine Extremities Exam Present: no edema ( ). Absent: cyanosis, clubbing - Routine Skin Exam Present: intact. Absent: erythema, dry - Routine Neurological Exam Present: alert, oriented X3 - Routine Psychiatric Exam Present: normal affect, normal thought process Results - Labs CBC & Chem 7: 03/25/18 04:03 03/25/18 04:03 Assessment and Plan (1) Diarrhea Current visit: No Status: Acute (2) Dehydration Current visit: No Status: Acute (3) Partial small bowel obstruction Current visit: No Status: Acute (4) Hiatus hernia with obstruction Current visit: Yes Status: Acute Assessment and Plan: Recurrent Partial SBO -CT abd showed LLQ sbo -Surgery following, non-surgical approach -Improved Hiatal hernia -Large, possibly causing sbo -Previously has been told not a surgery candidate Macrocytic Anemia -Check b12/folate Ppx -SCDs - Physician Narrative Narrative: Date: 03/25/18 Time: 1120 Hospital Course Summary Disclaimer: The visit summary below is not to be considered part of the above Progress Note. Hospital Course: 03/25/18 Pt continues to improve, will discuss with surgery if diet can be advanced.
[2018-03-26] MEDS: LR 1,000 ML IV SCH ×3 (04:04→23:13)
[2018-03-26] MEDS: PANTOPRAZOLE 40 MG INJECTION IVP SCH (08:04)
--- NOTE | 2018-03-26 08:46 | Progress Note ---
DATE 03/25/2018 HISTORY The patient states that the abdominal pain that she had when she was admitted to the hospital has completely disappeared. She has no abdominal pain whatsoever at this time. She has no nausea. She has been passing flatus. PHYSICAL EXAMINATION VITAL SIGNS: Temperature is 96.5 degrees Fahrenheit oral. Pulse is 84. Respiratory rate is 20. Blood pressure is 144/65. Oxygen saturation is 93% on room air. ABDOMEN: The abdomen is soft and nontender and nondistended at this time. LABORATORY DATA White blood cell count is 4,300. Hemoglobin is 10.8. Hematocrit is 34.3. Serum sodium is 143. Serum potassium is 4.2. Serum creatinine is 0.9. IMAGING DATA The patient did have KUB and upright abdominal x-rays performed today. I do not see any dilated bowel loops or air-fluid levels on these x-rays. The patient does have a large hiatal hernia with some loops of small bowel and loops of colon up in the chest and the patient does therefore have a few pockets of air within the bowel up in the chest within this hiatal hernia. IMPRESSION Partial small bowel obstruction which clinically appears to be improved since admission to the hospital. PLAN Start clear liquid diet today and see how the patient tolerates this. MTDD
--- NOTE | 2018-03-26 09:13 | Progress Note ---
- Date 03/26/18 Subjective: F/U: recurrent partial small bowel obstruction, hiatal hernia. Vivi is seen this morning while sitting in her recliner, eating her liquid breakfast. She reports that overall, she is doing well. She denies any chest pain, shortness of breath, abdominal pain, nausea, vomiting or dysuria. Her appetite is stable. No bowel movement yet though she admits to lots of gas. Blood pressure has been elevated and home metoprolol and lisinopril were restarted today. Labs revealed leukopenia (WBC 4.0) with stable macrocytic anemia (hgb 11.4). BMP and electrolytes are stable. Objective Vital signs: Temperature 97.4 F 03/26/18 07:20 Pulse Rate 87 03/26/18 07:20 Respiratory Rate 18 03/26/18 07:20 Blood Pressure 153/67 H 03/26/18 07:20 Pulse Oximetry 95 03/26/18 07:20 Height/Weight/BMI: Weight 189 lb 6.033 oz Comments: Sitting up in her recliner, eating breakfast. - Constitutional Present: no acute distress, well nourished, well developed, obese, cooperative - Routine HEENT Exam Head: Present: normocephalic, atraumatic Eye: Present: PERRL. Absent: conjunctival icterus ENT: Present: mucous membranes moist, oropharynx clear - Routine Respiratory Exam Present: CTA bilaterally. Absent: respiratory distress, wheezes - Routine Cardiovascular Exam Present: RRR, S1, S2 - Routine Abdominal Exam Present: soft, normoactive bowel sounds, non tender - Routine Extremities Exam Present: edema (trace), full ROM, pulses intact - Routine Back/Spine/Pelvis Exam Back/Spine: Present: full ROM. Absent: vertebral tenderness - Routine Musculoskeletal Exam Musculoskeletal: Present: no clubbing or cyanosis, moving extremities well - Routine Skin Exam Present: intact, dry, warm Comments: Afebrile. - Routine Neurological Exam Present: alert, oriented X3, moving all extremities, hearing grossly intact, normal speech - Routine Lymphatic Exam Lymphatic: Absent: lymphedema - Routine Psychiatric Exam Present: normal affect, cooperative Results - Labs CBC & Chem 7: 03/26/18 04:16 03/26/18 04:16 Assessment and Plan (1) Diarrhea Current visit: No Status: Acute (2) Dehydration Current visit: No Status: Acute (3) Partial small bowel obstruction Current visit: No Status: Acute (4) Hiatus hernia with obstruction Current visit: Yes Status: Acute Assessment and Plan: Recurrent Partial SBO -CT abd on 03/23 showed LLQ sbo. -Ab x-ray on 03/25 revealed nonobstructive bowel pattern -Dr. Ng, surgery, following, non-surgical approach -Slowly improving. Hiatal hernia -Large, possibly causing sbo -Previously has been told not a surgery candidate Macrocytic Anemia -Check b12/folate - results pending. -Hgb stable (11.4) Leukopenia -Leukocytosis on admission (WBC 12.1) - resolved. -Current leukopenia (WBC 4.0). Continue to monitor. -Recheck labs in AM. Hypertension -Restart home metoprolol tartrate 50mg BID as well as lisinopril 10mg daily due to elevated blood pressures. -Monitor closely for signs of hypotension. Ppx -SCDs DVT Prophylaxis: SCD's GI Prophylaxis: Protonix Resuscitation Status: Full Code - Time spent with patient Time with patient PN: 30 minutes - Physician Narrative Narrative: Date: 03/26/18 Time: 1241 S: Pt reports she's doing well, denies any n/v/d, f/c, cp or sob. Pt passing gas but no BMs. Pt tolerating liquid diet well. O: Gen: no acute distress Abd: non-tender, active BS, soft A/P: Pt improving, discussed with , if pt still doing well may be able to go home tomorrow. Ppx -SCDs Hospital Course Summary Disclaimer: The visit summary below is not to be considered part of the above Progress Note. Hospital Course: 03/25/18 Pt continues to improve, will discuss with surgery if diet can be advanced. 03/26/18 Patient slowly improving. Diet advanced to full liquids and patient tolerating well. Macrocytic anemia stable with B12 and folate levels pending. Leukocytosis resolved with new leukopenia. Will continue to monitor. Home medications for hypertension restarted including metoprolol tartrate 50mg BID as well as lisinopril 10mg daily. Monitor closely for signs of hypotension.
[2018-03-26] MEDS: LISINOPRIL 10 MG TABLET PO SCH (09:26)
--- NOTE | 2018-03-26 13:59 | Progress Note ---
DATE 03/26/2018 HISTORY The patient has been receiving a clear liquid diet for the past 24 hours and she has been tolerating this well. She has had no abdominal pain during this time. She has had no nausea or vomiting. She continues to pass flatus. PHYSICAL EXAMINATION VITAL SIGNS: Temperature is 97.4 degrees Fahrenheit oral. Pulse is 87. Respiratory rate is 18. Blood pressure is 153/67. Oxygen saturation is 95% on room air. ABDOMEN: The abdomen is soft and nontender and nondistended. LABORATORY DATA White blood cell count is 4000. Hemoglobin is 11.4. Hematocrit is 35.6. Serum sodium is 144. Serum potassium is 4. Serum creatinine is 0.8. IMPRESSION Partial small bowel obstruction which clinically appears to be improving. PLAN 1. Advance diet to full liquid diet with six small feedings per day. The patient can start this for lunch today. If the patient is tolerating this full liquid diet, the diet could be advanced further later today. MTDD
[2018-03-27 07:42] VITALS: O2SAT 93
[2018-03-27] MEDS: LISINOPRIL 10 MG TABLET PO SCH (09:14)
[2018-03-27] MEDS ORDERED: PANTOPRAZOLE 40 MG TABLET PO SCH (09:15)
[2018-03-27] MEDS: LR 1,000 ML IV SCH (09:43)
[2018-03-27] MEDS: PANTOPRAZOLE 40 MG INJECTION IVP SCH (09:43)
[2018-03-27 12:00] VITALS: BP 122/61; PULSE 61; RESP 16; TEMP 98.1
--- NOTE | 2018-03-27 14:27 | Discharge Summary ---
Discharge Information Date of admission: 03/24/18 10:12 Anticipated date of discharge: 03/27/18 Attending Physician: Nohemy Escalante MD Primary care physician: Usama Lopez MD - Discharge Diagnosis (1) Diarrhea Status: Acute (2) Dehydration Status: Acute (3) Partial small bowel obstruction Status: Acute (4) Hiatus hernia with obstruction Status: Acute Recurrent Partial SBO Hiatal hernia Macrocytic Anemia Leukopenia Hypertension - Laboratory Labs: Dismissal labs 03/27/18 03/27/18 03/26/18 04:14 04:14 04:16 WBC 4.6 RBC 3.35 L Hgb 10.9 L Hct 34.0 L MCV 101.5 H MCH 32.5 MCHC 32.1 RDW Std Deviation 51.4 H Plt Count 250 MPV 10.1 Immature Gran % (Auto) 0.2 Neut % (Auto) 27.7 L Lymph % (Auto) 53.9 H Mcnairy % (Auto) 15.1 H Eos % (Auto) 2.9 Baso % (Auto) 0.2 Neut # (Auto) 1.3 L Lymph # (Auto) 2.5 Mcnairy # (Auto) 0.7 Eos # (Auto) 0.1 Baso # (Auto) 0.0 Abs Immat Gran (auto) 0.01 Turbidity < 20 Sodium 143 Potassium 4.2 Chloride 109 H Carbon Dioxide 26 Anion Gap 8 BUN 12.0 Creatinine 1.0 D GFR Calculation 53 BUN/Creatinine Ratio 12 Glucose 84 Calculated Osmolality 274 Calcium 9.2 Icterus Index < 2 Vitamin B12 821 Folate > 20.0 H Specimen Hemolysis < 15 - Radiology Radiology: Date of Exam: 03/23/18 Indication: H/o diaphragmatic hernia; similar sx PROCEDURE: CT abdomen pelvis w con: Findings: Lung bases are grossly clear. 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 The spleen is unremarkable. The liver and gallbladder are grossly normal. No pancreatic masses. The adrenal glands are normal. Kidneys are stable. No abdominal or pelvic lymphadenopathy. A tracker artifact from right hip replacement. Fat-containing left inguinal hernia. Sigmoid diverticulosis without evidence of acute diverticulitis. Prominent small bowel loops in the central abdomen with a transition zone in the left lower quadrant to decompressed distal bowel. Bowel loops measure up to 3 cm in diameter. Bone windows show no acute findings. Impression: Evidence of a moderate partial small bowel obstruction in the left lower quadrant of the abdomen, similar to the prior exam. = = = = = = = = = = = = = = = = = = = = = = = = = = = = = = = = = = = = = = = = = = = = = = = = = = = = = = = = = = = Date of Exam: 03/25/18 Indication: small bowel obstruction PROCEDURE: XR abdomen 2V: Findings: The bowel gas pattern is nonobstructive and nonspecific radiographically. Gas is seen distally to the level of the rectum. No abnormally dilated gas-filled small bowel appreciated. Left-sided diaphragmatic defect is again noted with stomach and bowel herniated into the left chest. No free air identified. Bony structures are unchanged. Moderate stool in the colon. Impression: Radiographically nonobstructive bowel gas pattern. History of Present Illness HPI: 77 yo F with PMH of large hiatal hernia presented to the ED with diffuse abdominal pain. She reports the pain started on night and it usually resolves with in an hour, but this time it did not. She does have PMH of SBO in the past secondary to this. She has been seen by Dr. Godfrey and counseled not to have surgery unless absolutely necessary. SBO's in the past have resolved spontaneously. She reports her pain starts in her stomach and then goes down and radiates to the rest of her stomach. She has not been able to eat or drink anything and reports large amounts of watery stools. She reports these symptoms are very similar to her SBO's in the past. She was admitted for IVF and pain control. Objective Vital signs: Temperature 98.1 F 03/27/18 11:59 Pulse Rate 61 03/27/18 11:59 Respiratory Rate 16 03/27/18 11:59 Blood Pressure 122/61 03/27/18 11:59 Pulse Oximetry 93 03/27/18 11:59 Height/Weight/BMI: Weight 85.9 kg - Constitutional Present: no acute distress, well nourished, well developed - Routine HEENT Exam Head: Present: normocephalic, atraumatic - Routine Respiratory Exam Present: CTA bilaterally. Absent: wheezes - Routine Cardiovascular Exam Present: RRR, no murmur - Routine Abdominal Exam Present: soft, non distended, non tender - Routine Extremities Exam Present: edema (trace), normal capillary refill - Routine Skin Exam Present: dry, warm - Routine Neurological Exam Present: alert, oriented X3 - Routine Lymphatic Exam Lymphatic: Absent: adenopathy - Routine Psychiatric Exam Present: normal affect, cooperative Hospital Course This is a general summary of the patient's hospital course. For more details refer to the complete medical record. Brief Summary: Pt was admitted d/t partial SBO and surgery decided to treat conservatively with bowel rest. Pt did well and in a couple of days was eating a full diet and cleared the pt to go home. Pt has a large hiatal hernia and it was unclear how much that was related to her obstruction. It was recommended for pt to follow up with a specialist to determine the appropriateness of surgical intervention for her hernia. Hospital course: 03/24/18 Admit for supportive care. IVF NS at 100cc//hr overnight. Morphine for pain control. NPO except for sips and chips. Monitor UOP and electrolytes. Change IV fluids to lactated Ringer's. Check renal panel this morning. Start Dulcolax suppositories. I did call and discuss the patient with , general surgeon, and he will come to evaluate the patient. I do not think she has a surgical abdomen at this time. Continue morphine as needed for pain. Antiemetics as needed for nausea. SCDs for DVT prophylaxis. Give Protonix IV for GI prophylaxis. CBC and basic metabolic profile tomorrow. 03/25/18 Pt continues to improve, will discuss with surgery if diet can be advanced. 03/26/18 Patient slowly improving. Diet advanced to full liquids and patient tolerating well. Macrocytic anemia stable with B12 and folate levels pending. Leukocytosis resolved with new leukopenia. Will continue to monitor. Home medications for hypertension restarted including metoprolol tartrate 50mg BID as well as lisinopril 10mg daily. Monitor closely for signs of hypotension. 03/27/18 Pt w/o pain. Had solid and liquid stools yesterday. Passing gas. Tolerating regular diet. DC home today. Has met with dietitian and will continue to eat small meals throughout the day. Time spent with patient: discharge greater than 30 minutes Resuscitation Status: Full Code Discharge Plan - Discharge Disposition Discharge Date: 03/27/18 Disposition: 01 Discharged Home, Self-Care *Condition: Stable Reason For Visit (Visit label in EMR): hiatus hernia,partial SBO,abd pain,nausea - Discharge Medications *Discharge Medications: Continue Aspirin [[place] Aspirin] 81 mg PO DAILY Metoprolol Tartrate [Lopressor] 50 mg PO BIDWM Meloxicam [Mobic] 7.5 mg PO BID diphenhydrAMINE HCl [Benadryl] 25 mg PO Q4H PRN PRN Reason: Prn Orders Acetaminophen [Acetaminophen Extra Strength] 1,000 mg PO Q6H PRN PRN Reason: Pain Docusate Sodium [Colace] 100 mg PO DAILY PRN PRN Reason: Constipation Multivitamin [One Daily] 1 tab PO DAILY PEG 3350 17gm PACKET [Miralax] 17 gm PO DAILY packet Wheat Dextrin [Benefiber] 1 each PO PRN PRN PRN Reason: Prn Orders Omeprazole [Prilosec] 20 mg PO DAILY Lisinopril [Prinivil] 10 mg PO DAILY - Discharge Packet/Instructions *Diet: regular diet - small meals throughout the day, avoiding foods (such as bread) which can easily get stuck *Activity: as tolerated *Pain Management/Treatment: Tylenol, Mobic *Wound Care: n/a *Notify Physician if: you develop nausea, vomiting, abdominal pain or are unable to have a bowel movement *During Business Hours Contact: Dr. Lopez *After Business Hours Contact: Contact Dr. Lopez office and follow instructions for after hours calls *Pending Lab/Results: No Pending Lab - Referrals/Follow Up *Referrals/Follow Up: Usama Lopez MD [Primary Care Provider] - 04/04/18 11:30 am - Patient Handouts Patient Handouts: Hiatal Hernia (DC) - Dismissal Complete Discharge Instructions are:: Complete Physician Narrative - Narrative Physician: other (Dr Escalante) Attestation Narrative: Date: 03/27/18 Time: 1315
[2018-03-28] MEDS ORDERED: PANTOPRAZOLE 40 MG TABLET PO SCH (06:30)
== END 2018-03-27 16:55 | disposition home or self-care (01) | DRG 392 ==
LOC: ED 23:03 → EDHOLD 23:03 → SUATTDRO 03-24 01:41 → SRG 03-24 02:10 → SUATTDRO 03-24 10:12
PROVIDERS: ADMIT Internal Medicine; ATTEND Internal Medicine